=== PATIENT | female | born 2000 | race Caucasian/White ===

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

== ENCOUNTER 2021-01-27 21:33 | Emergency (ER) | payer OTHER ==
[2021-01-27 22:58] VITALS: BP 118/73; PULSE 71; RESP 18; TEMP 98.5
[2021-01-27 23:39] LABS: Appearance,Urine Cloudy (Clear); Bacteria,Urine Rare /hpf; Bilirubin,Urine Negative (Negative); Blood,Urine Negative (Negative); Color,Urine Yellow; Glucose,Urine (UA) Negative (Negative); Hyaline Casts,Urine 3 /lpf (0-2); Ketones,Urine 1+ (Negative); Leukocyte Esterase,Urine Negative (Negative); Mucus,Urine Many /hpf; Nitrite,Urine Negative (Negative); Protein,Urine Trace (Negative); RBC,Urine 13 /hpf (0-5); Specific Gravity,Urine 1.023 (1.001-1.035); Squamous Epithelial Cell,Urine 2 /hpf (0-4); WBC,Urine 2 /hpf (0-5)
--- NOTE | 2021-01-28 00:55 | ED ---
Abdominal Pain HPI - General Chief Complaint: Abdominal Pain Stated Complaint: Abdominal pain Time Seen by Provider: 01/28/21 00:52 Source: patient Mode of arrival: ambulatory Limitations: no limitations - Related Data Home Medications Medication Instructions Recorded Confirmed Cephalexin [Keflex] 500 mg PO Q12H 11/29/20 11/29/20 Tylenol (Unknown Strength) 2 tab PO ONCE PRN 11/29/20 11/29/20 Previous Rx's Medication Instructions Recorded Sulfamethox-Tmp 800-160Mg [Bactrim 1 each PO Q12HR #10 tab 11/29/20 Ds] valACYclovir HCL [Valtrex] 2,000 mg PO Q12HR 1 Days #4 tab 11/29/20 Allergies Allergy/AdvReac Type Severity Reaction Status Date / Time No Known Allergies Allergy Verified 01/27/21 22:57 Review of Systems ROS Statement: Those systems with pertinent positive or pertinent negative responses have been documented in the HPI. ROS Other: All systems not noted in ROS Statement are negative. Past Medical History Past Medical History: No Reported History History of Any Multi-Drug Resistant Organisms: None Reported Past Surgical History: Ear Surgery Past Psychological History: No Psychological Hx Reported Smoking Status: Never smoker Past Alcohol Use History: None Reported Past Drug Use History: None Reported General Exam Limitations: no limitations Course Vital Signs 01/27/21 22:54 Temperature 98.5 F Pulse Rate 71 Respiratory 18 Rate Blood Pressure 118/73 O2 Sat by Pulse 96 Oximetry Medical Decision Making - Lab Data Lab Results 01/27/21 01/27/21 Range/Units 23:02 23:03 Urine Color Yellow Urine Appearance Cloudy H (Clear) Urine pH 6.0 (5.0-8.0) Ur Specific [place] 1.023 (1.001-1.035) Urine Protein Trace H (Negative) Urine Glucose (UA) Negative (Negative) Urine Ketones 1+ H (Negative) Urine Blood Negative (Negative) Urine Nitrite Negative (Negative) Urine Bilirubin Negative (Negative) Urine Urobilinogen 2.0 (<2.0) mg/dL Ur Leukocyte Esterase Negative (Negative) Urine RBC 13 H (0-5) /hpf Urine WBC 2 (0-5) /hpf Ur Squamous Epith Cells 2 (0-4) /hpf Urine Bacteria Rare H (None) /hpf Hyaline Casts 3 H (0-2) /lpf Urine Mucus Many H (None) /hpf Urine HCG, Qual Not Detected (Not Detectd) Disposition Clinical Impression: Abdominal pain Disposition: HOME SELF-CARE Condition: Good Instructions (If sedation given, give patient instructions): Abdominal Pain (ED) Is patient prescribed a controlled substance at d/c from ED?: No Referrals: None,Stated [Primary Care Provider] - 1-2 days
[2021-01-29 13:10] LABS: C. trachomatis,PCR Negative (Neg,Equiv); Chlamydia trachomatis Source Urine; N. gonorrhoeae,PCR Negative (Neg,Equiv); Neisseria Source Urine
== END 2021-01-28 01:19 | disposition home or self-care (01) ==
LOC: EC 21:33
DX: R10.9 Unspecified abdominal pain (principal)
CPT/HCPCS: 81001; 81025; 87086; 87491; 87591; 99284

== ENCOUNTER 2021-04-14 20:42 | Emergency (ER) | payer OTHER ==
[2021-04-14 21:09] VITALS: BP 116/63; PULSE 79; RESP 18; TEMP 97.8
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
[2021-04-14] MEDS ORDERED: AMOXICILLIN 500 MG CAP PO STA (21:37)
[2021-04-14] MEDS ORDERED: ACET/COD 300 MG/30 MG STARTER PACK 6 TAB BTL PO STA (21:37)
== END 2021-04-14 22:14 | disposition home or self-care (01) ==
LOC: EC 20:42
DX: H72.92 Unspecified perforation of tympanic membrane, left ear (principal)
CPT/HCPCS: 99282

== ENCOUNTER 2021-11-22 19:06 | Emergency (ER) | payer OTHER ==
[2021-11-22 19:20] VITALS: BP 102/51; RESP 20; TEMP 97.7
[2021-11-22 19:21] VITALS: PULSE 96
--- NOTE | 2021-11-22 19:58 | ED ---
General Adult HPI - General Chief complaint: Upper Respiratory Infection Stated complaint: covid test Time Seen by Provider: 11/22/21 19:23 Source: patient Mode of arrival: ambulatory Limitations: no limitations - History of Present Illness Initial comments: This 20-year-old female presents emergency Department to get tested for COVID- 19. Patient states her sister, who lives in the home with them test positive for COVID-19 yesterday. Patient states for the last day she has had a sore throat, body aches, cough without mucus production, and a dull headache that seemed to go away earlier today. Patient states she has been taking Tylenol which has improved her symptoms. Patient denies any chest pain, shortness breath, abdominal pain, nausea, vomiting, change in vision, fever, dizziness, change in appetite, change in bowel or bladder. - Related Data Home Medications Medication Instructions Recorded Confirmed Cephalexin [Keflex] 500 mg PO Q12H 11/29/20 11/29/20 Tylenol (Unknown Strength) 2 tab PO ONCE PRN 11/29/20 11/29/20 Previous Rx's Medication Instructions Recorded Sulfamethox-Tmp 800-160Mg [Bactrim 1 each PO Q12HR #10 tab 11/29/20 Ds] valACYclovir HCL [Valtrex] 2,000 mg PO Q12HR 1 Days #4 tab 11/29/20 Amoxicillin 500 mg PO Q8H 7 Days #21 capsule 04/14/21 Ofloxacin 0.3% Otic Soln [Floxin 10 drops LEFT EAR DAILY 7 Days #10 04/14/21 0.3% Otic Soln] ml Allergies Allergy/AdvReac Type Severity Reaction Status Date / Time No Known Allergies Allergy Verified 11/22/21 19:18 Review of Systems ROS Statement: Those systems with pertinent positive or pertinent negative responses have been documented in the HPI. ROS Other: All systems not noted in ROS Statement are negative. Past Medical History Past Medical History: No Reported History History of Any Multi-Drug Resistant Organisms: None Reported Past Surgical History: Ear Surgery Past Psychological History: No Psychological Hx Reported Smoking Status: Never smoker Past Alcohol Use History: Occasional Past Drug Use History: Marijuana General Exam Limitations: no limitations General appearance: alert, in no apparent distress Head exam: Present: atraumatic, normocephalic Eye exam: Present: normal appearance, EOMI ENT exam: Present: mucous membranes moist Respiratory exam: Present: normal lung sounds bilaterally. Absent: respiratory distress, wheezes, rales, rhonchi, stridor Cardiovascular Exam: Present: regular rate, normal rhythm, normal heart sounds. Absent: systolic murmur, diastolic murmur, rubs, gallop, clicks GI/Abdominal exam: Present: soft, normal bowel sounds. Absent: distended, tenderness, guarding, rebound, rigid Neurological exam: Present: alert, oriented X3, CN II-XII intact Psychiatric exam: Present: normal affect, normal mood Skin exam: Present: warm, dry, intact, normal color. Absent: rash Course Vital Signs 11/22/21 19:18 Temperature 97.7 F Pulse Rate 96 Respiratory 20 Rate Blood Pressure 102/51 O2 Sat by Pulse 100 Oximetry Medical Decision Making - Medical Decision Making This 20-year-old female presents to the emergency department to get tested for covid-19. Patient is Covid 19 positive. Patient advised to take [id number] Motrin or Tylenol for symptom relief. Informed patient to take almk-zph-wjmuiin zinc, vitamin C, vitamin D. Advised patient to get pulse oximeter from [facility] and to return to the emergency department if oxygen drops belo w 90%. Patient to follow-up with primary care provider next 24-48 hours. Strict return precautions were discussed. Patient verbally agreed to plan. Patient sent home in stable condition. - Lab Data Lab Results 11/22/21 Range/Units 19:41 Coronavirus (PCR) Detected A (Not Detectd) Disposition Clinical Impression: COVID-19 Disposition: HOME SELF-CARE Condition: Stable Instructions (If sedation given, give patient instructions): Coronavirus Disease 2019 (COVID-19) Additional Instructions: Please return to the emergency department with any concerning, new, or worsening symptoms. Follow-up with primary care provider next 24-48 hours. Can take Tylenol or Motrin as directed for symptom relief. Take ftrm-rlm-uiezyma zinc, vitamin C, vitamin D. Advised to get pulse oximeter from [facility] and to return to emergency department if oxygen drops below 90%. Is patient prescribed a controlled substance at d/c from ED?: No Referrals: None,Stated [Primary Care Provider] - 1-2 days Time of Disposition: 20:24
== END 2021-11-22 20:44 | disposition home or self-care (01) ==
LOC: EC 19:06
DX: U07.1 COVID-19 (principal); F12.90 Cannabis use, unspecified, uncomplicated; Z72.89 Other problems related to lifestyle
CPT/HCPCS: 87635; 99283

== ENCOUNTER 2021-12-03 19:16 | Emergency (ER) | payer OTHER ==
[2021-12-03 20:28] VITALS: TEMP 98.4
[2021-12-03] MEDS ORDERED: ACETAMINOPHEN TAB 500 MG TAB PO STA (22:56)
--- NOTE | 2021-12-03 22:59 | ED ---
General Adult HPI - General Chief complaint: Vaginal Bleeding Stated complaint: , Heavy vaginal bleeding Time Seen by Provider: 12/03/21 22:25 Source: patient Mode of arrival: ambulatory Limitations: no limitations - History of Present Illness Initial comments: 20-year-old female currently with an LMP of 10/21/21 presents to the emergency room for vaginal bleeding. Patient states for 2 days she has had vaginal bleeding. States she has passed some clots. States it does seem to be slowing down. Patient is also having right flank pain. Patient denies dysuria. Denies fevers.Patient has no other complaints at this time including shortness of breath, chest pain, abdominal pain, nausea or vomiting, headache, or visual changes. - Related Data Home Medications Medication Instructions Recorded Confirmed No Known Home Medications 12/03/21 12/03/21 Allergies Allergy/AdvReac Type Severity Reaction Status Date / Time No Known Allergies Allergy Verified 12/03/21 23:01 Review of Systems ROS Statement: Those systems with pertinent positive or pertinent negative responses have been documented in the HPI. ROS Other: All systems not noted in ROS Statement are negative. Past Medical History Past Medical History: No Reported History History of Any Multi-Drug Resistant Organisms: None Reported Past Surgical History: Ear Surgery Past Psychological History: No Psychological Hx Reported Smoking Status: Never smoker Past Alcohol Use History: Occasional Past Drug Use History: Marijuana General Exam Limitations: no limitations General appearance: alert, in no apparent distress Head exam: Present: atraumatic Eye exam: Present: normal appearance, PERRL, EOMI. Absent: scleral icterus, conjunctival injection ENT exam: Present: normal exam, mucous membranes moist Neck exam: Present: normal inspection, full ROM. Absent: tenderness Respiratory exam: Present: normal lung sounds bilaterally. Absent: respiratory distress, wheezes Cardiovascular Exam: Present: regular rate, normal rhythm, normal heart sounds GI/Abdominal exam: Present: soft, normal bowel sounds. Absent: distended, tenderness Back exam: Present: CVA tenderness (R). Absent: CVA tenderness (L) Course Vital Signs 12/03/21 20:26 Temperature 98.4 F Pulse Rate 77 Respiratory 20 Rate Blood Pressure 106/63 O2 Sat by Pulse 99 Oximetry Medical Decision Making - Medical Decision Making Vitals are stable. Patient is well-appearing. No abdominal tenderness on exam. CBC reveals a hemoglobin of 11.4. CMP is unremarkable. HCG is negative. Uri nalysis does show blood however this is likely related to vaginal bleeding. Pelvic ultrasound is unremarkable. Patient was also having some right flank pain. This showed no evidence of hydronephrosis. At this time patient is stable for outpatient follow-up. She should return here for any worsening symptoms. - Lab Data Result diagrams: 12/04/21 01:24 12/04/21 01:24 Lab Results 12/03/21 12/03/21 12/04/21 Range/Units 23:19 23:19 01:24 WBC 6.1 (4.0-11.0) k/uL RBC 4.04 (3.80-5.40) m/uL Hgb 11.4 (11.4-16.0) gm/dL Hct 35.2 (34.0-46.0) % MCV 87.2 (80.0-100.0) fL MCH 28.2 (25.0-35.0) pg MCHC 32.3 (31.0-37.0) g/dL RDW 12.8 (11.5-15.5) % Plt Count 226 (150-450) k/uL MPV 9.6 Neutrophils % 63 % Lymphocytes % 28 % Monocytes % 5 % Eosinophils % 3 % Basophils % 0 % Neutrophils # 3.8 (1.3-7.7) k/uL Lymphocytes # 1.7 (1.0-4.8) k/uL Monocytes # 0.3 (0-1.0) k/uL Eosinophils # 0.2 (0-0.7) k/uL Basophils # 0.0 (0-0.2) k/uL Sodium (137-145) mmol/L Potassium (3.5-5.1) mmol/L Chloride (98-107) mmol/L Carbon Dioxide (22-30) mmol/L Anion Gap mmol/L BUN (7-17) mg/dL Creatinine (0.52-1.04) mg/dL Est GFR (CKD-EPI)AfAm (>60 ml/min/1.73 sqM) Est GFR (CKD-EPI)NonAf (>60 ml/min/1.73 sqM) Glucose (74-99) mg/dL Calcium (8.4-10.2) mg/dL Total Bilirubin (0.2-1.3) mg/dL AST (14-36) U/L ALT (4-34) U/L Alkaline Phosphatase (38-126) U/L Total Protein (6.3-8.2) g/dL Albumin (3.5-5.0) g/dL HCG, Quant mIU/mL Urine Color Red Urine Appearance Cloudy H (Clear) Urine pH 7.5 (5.0-8.0) Ur Specific [place] 1.027 (1.001-1.035) Urine Protein 2+ H (Negative) Urine Glucose (UA) Negative (Negative) Urine Ketones Negative (Negative) Urine Blood Large H (Negative) Urine Nitrite Negative (Negative) Urine Bilirubin Negative (Negative) Urine Urobilinogen 2.0 (<2.0) mg/dL Ur Leukocyte Esterase Small H (Negative) Urine RBC >182 H (0-5) /hpf Urine WBC 17 H (0-5) /hpf Ur Squamous Epith Cells 19 H (0-4) /hpf Amorphous Sediment Rare H (None) /hpf Urine Bacteria Rare H (None) /hpf Urine Mucus Many H (None) /hpf Urine HCG, Qual Not Detected (Not Detectd) Blood Type Recheck Bld Type Recheck Status 12/04/21 12/04/21 Range/Units 01:24 01:24 WBC (4.0-11.0) k/uL RBC (3.80-5.40) m/uL Hgb (11.4-16.0) gm/dL Hct (34.0-46.0) % MCV (80.0-100.0) fL MCH (25.0-35.0) pg MCHC (31.0-37.0) g/dL RDW (11.5-15.5) % Plt Count (150-450) k/uL MPV Neutrophils % % Lymphocytes % % Monocytes % % Eosinophils % % Basophils % % Neutrophils # (1.3-7.7) k/uL Lymphocytes # (1.0-4.8) k/uL Monocytes # (0-1.0) k/uL Eosinophils # (0-0.7) k/uL Basophils # (0-0.2) k/uL Sodium 138 (137-145) mmol/L Potassium 4.0 (3.5-5.1) mmol/L Chloride 106 (98-107) mmol/L Carbon Dioxide 23 (22-30) mmol/L Anion Gap 9 mmol/L BUN 13 (7-17) mg/dL Creatinine 0.63 (0.52-1.04) mg/dL Est GFR (CKD-EPI)AfAm >90 (>60 ml/min/1.73 sqM) Est GFR (CKD-EPI)NonAf >90 (>60 ml/min/1.73 sqM) Glucose 102 H (74-99) mg/dL Calcium 9.3 (8.4-10.2) mg/dL Total Bilirubin 0.7 (0.2-1.3) mg/dL AST 21 (14-36) U/L ALT 10 (4-34) U/L Alkaline Phosphatase 88 (38-126) U/L Total Protein 7.5 (6.3-8.2) g/dL Albumin 4.2 (3.5-5.0) g/dL HCG, Quant <2.4 mIU/mL Urine Color Urine Appearance (Clear) Urine pH (5.0-8.0) Ur Specific [place] (1.001-1.035) Urine Protein (Negative) Urine Glucose (UA) (Negative) Urine Ketones (Negative) Urine Blood (Negative) Urine Nitrite (Negative) Urine Bilirubin (Negative) Urine Urobilinogen (<2.0) mg/dL Ur Leukocyte Esterase (Negative) Urine RBC (0-5) /hpf Urine WBC (0-5) /hpf Ur Squamous Epith Cells (0-4) /hpf Amorphous Sediment (None) /hpf Urine Bacteria (None) /hpf Urine Mucus (None) /hpf Urine HCG, Qual (Not Detectd) Blood Type Recheck No Previous Record Bld Type Recheck Status CABO Indicated Disposition Clinical Impression: Vaginal bleeding Disposition: HOME SELF-CARE Condition: Good Instructions (If sedation given, give patient instructions): Dysfunctional Uterine Bleeding (ED) Additional Instructions: Please follow up with your doctor in 1-2 days. Return to the ER for any worsening symptoms. Is patient prescribed a controlled substance at d/c from ED?: No Referrals: Krystin Vasquez MD [REFERRING] - 1-2 days Pan Disla MD [STAFF PHYSICIAN] - 1-2 days Time of Disposition: 02:22
[2021-12-03 23:49] LABS: Amorphous Sediment,Urine Rare /hpf; Appearance,Urine Cloudy (Clear); Bacteria,Urine Rare /hpf; Bilirubin,Urine Negative (Negative); Blood,Urine Large (Negative); Color,Urine Red; Glucose,Urine (UA) Negative (Negative); Ketones,Urine Negative (Negative); Leukocyte Esterase,Urine Small (Negative); Mucus,Urine Many /hpf; Nitrite,Urine Negative (Negative); PH, Urine 7.5 (5.0-8.0); Protein,Urine 2+ (Negative); RBC,Urine >182 /hpf (0-5); Specific Gravity,Urine 1.027 (1.001-1.035); Squamous Epithelial Cell,Urine 19 /hpf (0-4); WBC,Urine 17 /hpf (0-5)
--- NOTE | 2021-12-04 01:18 | US ---
EXAMINATION TYPE: US kidneys/renal and bladder DATE OF EXAM: 12/04/2021 COMPARISON: NONE CLINICAL HISTORY: R flank pain. Right flank pain. EXAM MEASUREMENTS: Right Kidney: 10.2 x 5.3 x 3.7 cm Left Kidney: 11.0 x 5.0 x 4.9 cm Right Kidney: No hydronephrosis or masses seen Left Kidney: Limited. Hyperechoic focus seen: 0.8 x 0.7 x 0.5 cm. Bladder: Unable to evaluate. Not distended. Bilateral Jets seen: No IMPRESSION: Bladder was empty during the exam. No hydronephrosis. Echogenic focus in the left kidney without shad owing of doubtful significance.
--- NOTE | 2021-12-04 01:19 | US ---
EXAMINATION TYPE: Transabdominal DATE OF EXAM: 12/04/2021 12:02 AM COMPARISON: NONE CLINICAL HISTORY: pain. Pain, bleeding. . EXAM PERFORMED: Transvaginal (TV) and Transabdominal (TA) EXAM MEASUREMENTS: GESTATIONAL AGE / DATING Physician Established: Not yet established. Dates by LMP: (6 weeks/1 day) EDC: 07/28/2022 Dates by First Scan: This is first scan. Dates by Current Scan for: No IUP seen at this time. MATERNAL ANATOMY Uterus: 7.5 x 5.1 x 3.7 cm. Anteverted. Appears slightly heterogeneous. Subcentimeter anechoic areas in cervix. Right Ovary: 3.2 x 1.7 x 1.9 cm. Largest anechoic area seen- 1.1 cm. Left Ovary: 3.4 x 2.1 x 1.8 cm. Post CDS / Adnexa: Fluid seen in CDS. Prominent blood vessels seen within bilateral adnexa measuring 0.7 cm. Presence of free fluid: Yes, in CDS. Presence of corpus luteal cyst: Not definitely seen. GESTATION / SURVEY IUP: No IUP seen at this time. Date of LMP: 10/21/2021 Beta HcG (if available): not available at time of exam. Urine HCG not detected. IMPRESSION: Empty uterus. Endometrium measures 6 mm. No adnexal mass seen.
[2021-12-04 01:34] LABS: Basophils % (A) 0 %; Eosinophils # (A) 0.2 k/uL (0-0.7); Eosinophils % (A) 3 %; HCT 35.2 % (34.0-46.0); HGB 11.4 gm/dL (11.4-16.0); Lymphocytes # (A) 1.7 k/uL (1.0-4.8); Lymphocytes % (A) 28 %; MCH 28.2 pg (25.0-35.0); MCHC 32.3 g/dL (31.0-37.0); MCV 87.2 fL (80.0-100.0); Mean Platelet Volume 9.6; Monocytes # (A) 0.3 k/uL (0-1.0); Monocytes % (A) 5 %; Neutrophils # (A) 3.8 k/uL (1.3-7.7); Neutrophils % (A) 63 %; Platelet Count 226 k/uL (150-450); RBC 4.04 m/uL (3.80-5.40); RDW 12.8 % (11.5-15.5); WBC 6.1 k/uL (4.0-11.0)
[2021-12-04 01:56] LABS: ALT 10 U/L (4-34); AST 21 U/L (14-36); African American GFR (CKD) >90 (>60 ml/min/1.73 sqM); Albumin 4.2 g/dL (3.5-5.0); Alkaline Phosphatase 88 U/L (38-126); Anion Gap 9 mmol/L; Blood Urea Nitrogen 13 mg/dL (7-17); Calcium 9.3 mg/dL (8.4-10.2); Carbon Dioxide 23 mmol/L (22-30); Chloride 106 mmol/L (98-107); Glucose 102 mg/dL (74-99); Non-African American GFR(CKD) >90 (>60 ml/min/1.73 sqM); Sodium 138 mmol/L (137-145); Total Bilirubin 0.7 mg/dL (0.2-1.3); Total Protein 7.5 g/dL (6.3-8.2)
[2021-12-04 02:13] LABS: HCG,Quantitative Serum <2.4 mIU/mL
[2021-12-04 05:21] VITALS: BP 104/60; PULSE 89; RESP 18
== END 2021-12-04 04:00 | disposition home or self-care (01) ==
LOC: EC 19:16
DX: N93.9 Abnormal uterine and vaginal bleeding, unspecified (principal); F12.90 Cannabis use, unspecified, uncomplicated
CPT/HCPCS: 36415; 76770; 76801; 76817; 80053; 81001; 81025; 84702; 85025; 86900; 86901; 87086; 99284

== ENCOUNTER 2022-09-07 17:51 | Emergency (ER) | payer OTHER ==
[2022-09-07 18:50] LABS: Basophils % (A) 0 %; Eosinophils # (A) 0.1 k/uL (0-0.7); Eosinophils % (A) 1 %; HCT 41.4 % (34.0-46.0); HGB 13.9 gm/dL (11.4-16.0); Lymphocytes # (A) 1.9 k/uL (1.0-4.8); Lymphocytes % (A) 31 %; MCH 29.2 pg (25.0-35.0); MCHC 33.6 g/dL (31.0-37.0); MCV 86.9 fL (80.0-100.0); Mean Platelet Volume 9.8; Monocytes # (A) 0.3 k/uL (0-1.0); Monocytes % (A) 5 %; Neutrophils # (A) 3.8 k/uL (1.3-7.7); Neutrophils % (A) 61 %; Platelet Count 192 k/uL (150-450); RBC 4.76 m/uL (3.80-5.40); RDW 13.7 % (11.5-15.5); WBC 6.2 k/uL (4.0-11.0)
[2022-09-07 18:58] LABS: ALT 15 U/L (4-34); AST 25 U/L (14-36); African American GFR (CKD) >90 (>60 ml/min/1.73 sqM); Albumin 5.3 g/dL (3.5-5.0); Alkaline Phosphatase 104 U/L (38-126); Anion Gap 13 mmol/L; Blood Urea Nitrogen 10 mg/dL (7-17); Calcium 9.7 mg/dL (8.4-10.2); Carbon Dioxide 21 mmol/L (22-30); Chloride 107 mmol/L (98-107); Glucose 93 mg/dL (74-99); Non-African American GFR(CKD) >90 (>60 ml/min/1.73 sqM); Potassium 3.7 mmol/L (3.5-5.1); Sodium 141 mmol/L (137-145); Total Bilirubin 0.9 mg/dL (0.2-1.3); Total Protein 8.6 g/dL (6.3-8.2)
--- NOTE | 2022-09-07 19:11 | ED ---
Female Urogenital HPI - General Chief complaint: Vaginal Bleeding Stated complaint: Vaginal bleeding-5 weeks preg Time Seen by Provider: 09/07/22 17:59 Source: patient, RN notes reviewed Mode of arrival: ambulatory Limitations: no limitations - History of Present Illness Initial comments: This is a 21-year-old female who presents to the emergency department for vaginal bleeding. She is A0 with her first being 4 years ago. States that the spotting started 2 days ago. She first went to [facility] 2 days ago, she had blood work done but no ultrasound. She was discharged and told to return if symptoms persisted. States that she is now bleeding through a pad every hour. Reports associated abdominal cramping. Denies any nausea or vomiting. She is still trying to become established with an software controls engineer. Denies any fevers, chills, sore throat, cough, dyspnea, chest pain, palpitations, nausea, vomiting, diarrhea, back pain, or headaches. MD Complaint: vaginal bleeding, pelvic pain Onset/Timin -: days(s) Quality: cramping Last Menstrual Period: 08/04/22 - Related Data Previous Rx's Medication Instructions Recorded Cephalexin [Keflex] 500 mg PO Q8HR 5 Days #15 cap 09/07/22 Allergies Allergy/AdvReac Type Severity Reaction Status Date / Time No Known Allergies Allergy Verified 12/03/21 23:01 Review of Systems ROS Statement: Those systems with pertinent positive or pertinent negative responses have been documented in the HPI. ROS Other: All systems not noted in ROS Statement are negative. Past Medical History Past Medical History: No Reported History History of Any Multi-Drug Resistant Organisms: None Reported Past Surgical History: Ear Surgery Past Psychological History: No Psychological Hx Reported Smoking Status: Never smoker Past Alcohol Use History: Occasional Past Drug Use History: Marijuana General Exam Limitations: no limitations General appearance: alert, in no apparent distress Head exam: Present: atraumatic, normocephalic, normal inspection Respiratory exam: Present: normal lung sounds bilaterally. Absent: respiratory distress, wheezes, rales, rhonchi, stridor Cardiovascular Exam: Present: regular rate, normal rhythm, normal heart sounds. Absent: systolic murmur, diastolic murmur, rubs, gallop, clicks GI/Abdominal exam: Present: normal bowel sounds Neurological exam: Present: alert, oriented X3, CN II-XII intact Psychiatric exam: Present: normal affect, normal mood Skin exam: Present: warm, dry, intact, normal color. Absent: rash Course Vital Signs 09/07/22 09/07/22 17:53 20:12 Temperature 98.4 F 98.3 F Pulse Rate 113 H 106 H Respiratory 20 18 Rate Blood Pressure 130/82 106/61 O2 Sat by Pulse 98 99 Oximetry Medical Decision Making - Medical Decision Making This is a 21-year-old female who presents to the emergency department for vaginal bleeding. Lab work was nonactionable. The ultrasound was unable to identify an IUP or other irregular process due to the patient only being 5 weeks and having an hCG of 300. Discussed with the patient that this may be nonthreatening first trimester bleeding or the beginning of a miscarriage. She was given 2 scripts to have her hCG level repeated over the course of 4 days. She will have it repeated on 09/09 and again on 09/11 to trend the hCG numbers. Additionally, there was bacteria in her urine and she'll be treated for asymptomatic bacteriuria. The first dose of Keflex was administered in the emergency department and a five-day course was sent to her pharmacy. She is Rh+ and no RhoGAM is indicated. She is instructed to take a vitamin if she is not doing so already and to only take Tylenol for her pain, avoiding any [id number] anti-inflammatories such as ibuprofen or Tylenol. Reminded her to continue looking for obstetricians and to try to become established with one as soon as possible, especially given that she is having ongoing vaginal bleeding. Return precautions reviewed in depth, the patient is instructed to return to the emergency department with any new, worsening, or concerning symptoms. Patient verbalized understanding. This case was discussed in detail with the attending ED physician. Presentation, findings, and treatment plan discussed in detail as well. - Lab Data Result diagrams: 09/07/22 18:26 09/07/22 18: Lab Results 09/07/22 09/07/22 09/07/22 Range/Units 18:26 18:26 18: WBC 6.2 (4.0-11.0) k/uL RBC 4.76 (3.80-5.40) m/uL Hgb 13.9 (11.4-16.0) gm/dL Hct 41.4 (34.0-46.0) % MCV 86.9 (80.0-100.0) fL MCH 29.2 (25.0-35.0) pg MCHC 33.6 (31.0-37.0) g/dL RDW 13.7 (11.5-15.5) % Plt Count 192 (150-450) k/uL MPV 9.8 Neutrophils % 61 % Lymphocytes % 31 % Monocytes % 5 % Eosinophils % 1 % Basophils % 0 % Neutrophils # 3.8 (1.3-7.7) k/uL Lymphocytes # 1.9 (1.0-4.8) k/uL Monocytes # 0.3 (0-1.0) k/uL Eosinophils # 0.1 (0-0.7) k/uL Basophils # 0.0 (0-0.2) k/uL Sodium 141 (137-145) mmol/L Potassium 3.7 (3.5-5.1) mmol/L Chloride 107 (98-107) mmol/L Carbon Dioxide 21 L (22-30) mmol/L Anion Gap 13 mmol/L BUN 10 (7-17) mg/dL Creatinine 0.64 (0.52-1.04) mg/dL Est GFR (CKD-EPI)AfAm >90 (>60 ml/min/1.73 sqM) Est GFR (CKD-EPI)NonAf >90 (>60 ml/min/1.73 sqM) Glucose 93 (74-99) mg/dL Calcium 9.7 (8.4-10.2) mg/dL Total Bilirubin 0.9 (0.2-1.3) mg/dL AST 25 (14-36) U/L ALT 15 (4-34) U/L Alkaline Phosphatase 104 (38-126) U/L Total Protein 8.6 H (6.3-8.2) g/dL Albumin 5.3 H (3.5-5.0) g/dL HCG, Quant 300.7 mIU/mL Urine Color Urine Appearance (Clear) Urine pH (5.0-8.0) Ur Specific [place] (1.001-1.035) Urine Protein (Negative) Urine Glucose (UA) (Negative) Urine Ketones (Negative) Urine Blood (Negative) Urine Nitrite (Negative) Urine Bilirubin (Negative) Urine Urobilinogen (<2.0) mg/dL Ur Leukocyte Esterase (Negative) Urine RBC (0-5) /hpf Urine WBC (0-5) /hpf Ur Squamous Epith Cells (0-4) /hpf Urine Bacteria (None) /hpf Urine Mucus (None) /hpf Blood Type O Positive Blood Type Recheck O Pos Bld Type Recheck Status No 09/07/22 Range/Units 19:18 WBC (4.0-11.0) k/uL RBC (3.80-5.40) m/uL Hgb (11.4-16.0) gm/dL Hct (34.0-46.0) % MCV (80.0-100.0) fL MCH (25.0-35.0) pg MCHC (31.0-37.0) g/dL RDW (11.5-15.5) % Plt Count (150-450) k/uL MPV Neutrophils % % Lymphocytes % % Monocytes % % Eosinophils % % Basophils % % Neutrophils # (1.3-7.7) k/uL Lymphocytes # (1.0-4.8) k/uL Monocytes # (0-1.0) k/uL Eosinophils # (0-0.7) k/uL Basophils # (0-0.2) k/uL Sodium (137-145) mmol/L Potassium (3.5-5.1) mmol/L Chloride (98-107) mmol/L Carbon Dioxide (22-30) mmol/L Anion Gap mmol/L BUN (7-17) mg/dL Creatinine (0.52-1.04) mg/dL Est GFR (CKD-EPI)AfAm (>60 ml/min/1.73 sqM) Est GFR (CKD-EPI)NonAf (>60 ml/min/1.73 sqM) Glucose (74-99) mg/dL Calcium (8.4-10.2) mg/dL Total Bilirubin (0.2-1.3) mg/dL AST (14-36) U/L ALT (4-34) U/L Alkaline Phosphatase (38-126) U/L Total Protein (6.3-8.2) g/dL Albumin (3.5-5.0) g/dL HCG, Quant mIU/mL Urine Color Yellow Urine Appearance Cloudy H (Clear) Urine pH 7.0 (5.0-8.0) Ur Specific [place] 1.023 (1.001-1.035) Urine Protein 1+ H (Negative) Urine Glucose (UA) Negative (Negative) Urine Ketones Trace H (Negative) Urine Blood Large H (Negative) Urine Nitrite Negative (Negative) Urine Bilirubin Negative (Negative) Urine Urobilinogen <2.0 (<2.0) mg/dL Ur Leukocyte Esterase Small H (Negative) Urine RBC 1 (0-5) /hpf Urine WBC 16 H (0-5) /hpf Ur Squamous Epith Cells 11 H (0-4) /hpf Urine Bacteria Rare H (None) /hpf Urine Mucus Moderate H (None) /hpf Blood Type Blood Type Recheck Bld Type Recheck Status - Radiology Data Radiology results: report reviewed, image reviewed Disposition Clinical Impression: Vaginal bleeding in Disposition: HOME SELF-CARE Instructions (If sedation given, give patient instructions): (ED) Additional Instructions: Return to the emergency department with any new, worsening, or concerning symptoms. Take the Keflex as prescribed for 5 days. Take the prescriptions to the lab to have your hCG levels repeated in 2 days, on 09/09 and in 4 days on 09/11. Make sure you're taking a vitamin if you're not already doing so. Be sure to only take Tylenol for any pain and avoid [id number] anti- inflammatories such as ibuprofen. Keep trying to contact software controls engineer offices to become established with one of them. Follow up with your primary care provider in 1-2 days. Prescriptions: Cephalexin [Keflex] 500 mg PO Q8HR 5 Days #15 cap Is patient prescribed a controlled substance at d/c from ED?: No Referrals: None,Stated [Primary Care Provider] - 1-2 days
[2022-09-07 19:15] LABS: HCG,Quantitative Serum 300.7 mIU/mL
--- NOTE | 2022-09-07 19:24 | US ---
EXAMINATION TYPE: Transabdominal DATE OF EXAM: 09/07/2022 7:07 PM COMPARISON: NONE CLINICAL HISTORY: Vaginal bleeding in . EXAM PERFORMED: Transabdominal (TA) EXAM MEASUREMENTS: GESTATIONAL AGE / DATING Physician Established: Not yet established Dates by LMP: (4 weeks/ 6 days) EDC: 05-11-22 Dates by First Scan: No previous this is first scan Dates by Current Scan for: Unable to date by today's study MATERNAL ANATOMY Uterus: 8.6 x 5.4 x 2.8cm Endometrium: 1.1cm Right Ovary: 1.6 x 1.5 x 3.6cm Left Ovary: 2.3 x 1.6 x 1.9cm Post CDS / Adnexa: Adnexa are within normal limits. No suspicious solid or cystic lesion. GESTATION / SURVEY No IUP seen at this time. Patient is 4 weeks 6 days by LMP. Date of LMP: 08-04-22 Beta HcG (if available): Not available at this time IMPRESSION: No evidence for intrauterine or extrauterine at this time. Finding may represent a normal e radha . However spontaneous miscarriage or ectopic cannot be excluded. Recommend se rial beta hCG studies and follow-up ultrasound in 3-5 weeks.
[2022-09-07 19:52] LABS: Appearance,Urine Cloudy (Clear); Bacteria,Urine Rare /hpf; Bilirubin,Urine Negative (Negative); Blood,Urine Large (Negative); Color,Urine Yellow; Glucose,Urine (UA) Negative (Negative); Ketones,Urine Trace (Negative); Leukocyte Esterase,Urine Small (Negative); Mucus,Urine Moderate /hpf; Nitrite,Urine Negative (Negative); Protein,Urine 1+ (Negative); RBC,Urine 1 /hpf (0-5); Specific Gravity,Urine 1.023 (1.001-1.035); Squamous Epithelial Cell,Urine 11 /hpf (0-4); Urobilinogen,Urine <2.0 mg/dL (<2.0); WBC,Urine 16 /hpf (0-5)
[2022-09-07] MEDS ORDERED: CEPHALEXIN 500 MG CAP PO STA (19:59)
[2022-09-07 20:15] VITALS: BP 106/61; PULSE 106; RESP 18; TEMP 98.3
== END 2022-09-07 20:15 | disposition home or self-care (01) ==
LOC: EC 17:51
DX: O46.91 Antepartum hemorrhage, unspecified, first trimester (principal); F12.90 Cannabis use, unspecified, uncomplicated; Z3A.01 Less than 8 weeks gestation of pregnancy
CPT/HCPCS: 36415; 76801; 80053; 81001; 84702; 85025; 86900; 86901; 87086; 99284

== ENCOUNTER 2022-10-04 19:56 | Emergency (ER) | payer OTHER ==
[2022-10-04] MEDS ORDERED: SODIUM CHLORIDE 0.9% 1,000 ML IV ONE (22:28)
[2022-10-04] MEDS ORDERED: ACETAMINOPHEN TAB 325 MG TAB PO STA (22:28)
--- NOTE | 2022-10-04 22:32 | ED ---
General Adult HPI - General Chief complaint: Vaginal Bleeding Stated complaint: 7 Weeks preg,Bleeding and cramping Time Seen by Provider: 10/04/22 22:22 Source: patient, RN notes reviewed, old records reviewed Mode of arrival: ambulatory Limitations: no limitations - History of Present Illness Initial comments: This is a well-appearing 21-year-old female that presents to the emergency room with vaginal bleeding today. Patient states that she is approximately 7 weeks . She was seen in the emergency room for this and had an ultrasound done in September and was told they could not confirm an intrauterine . She states that she did go to [facility] on last week and had an ultrasound. They did identify a gestational sac. She has had intermittent bleeding throughout the however today she's had increased bleeding and pelvic cramping. She is a . Denies any other medical history. Is taking vitamins. No smoking or vaping, denies drug or alcohol use. -: days(s) (1) Location: pelvis Radiation: non-radiation Severity scale (1-10): 9 Consistency: intermittent Associated Symptoms: other (Vaginal bleeding) - Related Data Previous Rx's Medication Instructions Recorded Cephalexin [Keflex] 500 mg PO Q8HR 5 Days #15 cap 09/07/22 Allergies Allergy/AdvReac Type Severity Reaction Status Date / Time No Known Allergies Allergy Verified 10/04/22 20:37 Review of Systems ROS Statement: Those systems with pertinent positive or pertinent negative responses have been documented in the HPI. ROS Other: All systems not noted in ROS Statement are negative. Past Medical History Past Medical History: No Reported History History of Any Multi-Drug Resistant Organisms: None Reported Past Surgical History: Ear Surgery Past Psychological History: No Psychological Hx Reported Smoking Status: Never smoker Past Alcohol Use History: Occasional Past Drug Use History: Marijuana General Exam Limitations: no limitations General appearance: alert, in no apparent distress Head exam: Present: atraumatic, normocephalic Eye exam: Absent: scleral icterus, conjunctival injection, periorbital swelling, periorbital tenderness Neck exam: Present: normal inspection, full ROM. Absent: meningismus Respiratory exam: Present: normal lung sounds bilaterally. Absent: respiratory distress, wheezes, rales, rhonchi, stridor, chest wall tenderness, accessory muscle use Cardiovascular Exam: Present: regular rate GI/Abdominal exam: Present: soft. Absent: distended, tenderness, guarding, rebound, rigid Extremities exam: Present: full ROM, normal capillary refill. Absent: pedal edema Back exam: Present: normal inspection, full ROM. Absent: tenderness, CVA tenderness (R), CVA tenderness (L), rash noted Neurological exam: Present: alert, oriented X3 Psychiatric exam: Present: normal affect, normal mood Skin exam: Present: warm, dry, normal color. Absent: cyanosis, diaphoretic, petechiae, pallor Course Vital Signs 10/04/22 10/04/22 20:35 23:42 Temperature 98.1 F 98.0 F Pulse Rate 83 71 Respiratory 16 18 Rate Blood Pressure 119/74 119/71 O2 Sat by Pulse 98 97 Oximetry Medical Decision Making - Medical Decision Making Records were obtained from [facility] from patient's visits in September. Her hCG on 09/20/22 was 4840, and 09/30/22 was 8281. Bedside ultrasound was performed at their facility showing a gestational sac that was present. Ultrasound performed today interpreted by me shows no evidence of intrauterine . Radiologist interpretation empty uterus with no adnexal mass or free fluid. Today her BHCG is 7092. Hemoglobin and hematocrit are stable. Patient was given IV fluids. Vital signs are stable. This appears to be a complete . She states that cramping and bleeding has subsided. Patient was directed to follow-up with her SENIOR SOFTWARE ENGINEERING MANAGER on Thursday morning. Return to the emergency room with any new or concerning symptoms. - Lab Data Result diagrams: 10/04/22 22:24 10/04/22 22:24 Lab Results 10/04/22 10/04/22 Range/Units 22:24 22:24 WBC 9.3 (4.0-11.0) k/uL RBC 4.46 (3.80-5.40) m/uL Hgb 13.4 (11.4-16.0) gm/dL Hct 39.7 (34.0-46.0) % MCV 89.2 (80.0-100.0) fL MCH 30.1 (25.0-35.0) pg MCHC 33.8 (31.0-37.0) g/dL RDW 13.5 (11.5-15.5) % Plt Count 189 (150-450) k/uL MPV 9.5 Neutrophils % 83 % Lymphocytes % 12 % Monocytes % 3 % Eosinophils % 0 % Basophils % 0 % Neutrophils # 7.7 (1.3-7.7) k/uL Lymphocytes # 1.1 (1.0-4.8) k/uL Monocytes # 0.3 (0-1.0) k/uL Eosinophils # 0.0 (0-0.7) k/uL Basophils # 0.0 (0-0.2) k/uL Sodium 138 (137-145) mmol/L Potassium 3.9 (3.5-5.1) mmol/L Chloride 108 H (98-107) mmol/L Carbon Dioxide 20 L (22-30) mmol/L Anion Gap 10 mmol/L BUN 13 (7-17) mg/dL Creatinine 0.62 (0.52-1.04) mg/dL Est GFR (CKD-EPI)AfAm >90 (>60 ml/min/1.73 sqM) Est GFR (CKD-EPI)NonAf >90 (>60 ml/min/1.73 sqM) Glucose 119 H (74-99) mg/dL Calcium 9.4 (8.4-10.2) mg/dL HCG, Quant 7092.6 mIU/mL Disposition Clinical Impression: Complete Disposition: HOME SELF-CARE Condition: Good Instructions (If sedation given, give patient instructions): Miscarriage (ED) Additional Instructions: Increase your fluid intake. Tylenol and/or Motrin as needed for any discomfort. You can also use heat. Follow-up with SENIOR SOFTWARE ENGINEERING MANAGER next week. Return to the emergency room with pain or concerning symptoms including increased pain, bleeding or fevers. Have your labs repeated in 48 hours. Is patient prescribed a controlled substance at d/c from ED?: No Referrals: None,Stated [Primary Care Provider] - 1-2 days Kathie Dahl MD [STAFF PHYSICIAN] - 1-2 days Time of Disposition: 00:02
[2022-10-04 22:36] LABS: Basophils % (A) 0 %; Eosinophils % (A) 0 %; HCT 39.7 % (34.0-46.0); HGB 13.4 gm/dL (11.4-16.0); Lymphocytes # (A) 1.1 k/uL (1.0-4.8); Lymphocytes % (A) 12 %; MCH 30.1 pg (25.0-35.0); MCHC 33.8 g/dL (31.0-37.0); MCV 89.2 fL (80.0-100.0); Mean Platelet Volume 9.5; Monocytes # (A) 0.3 k/uL (0-1.0); Monocytes % (A) 3 %; Neutrophils # (A) 7.7 k/uL (1.3-7.7); Neutrophils % (A) 83 %; Platelet Count 189 k/uL (150-450); RBC 4.46 m/uL (3.80-5.40); RDW 13.5 % (11.5-15.5); WBC 9.3 k/uL (4.0-11.0)
[2022-10-04 22:46] LABS: African American GFR (CKD) >90 (>60 ml/min/1.73 sqM); Anion Gap 10 mmol/L; Blood Urea Nitrogen 13 mg/dL (7-17); Calcium 9.4 mg/dL (8.4-10.2); Carbon Dioxide 20 mmol/L (22-30); Chloride 108 mmol/L (98-107); Glucose 119 mg/dL (74-99); Non-African American GFR(CKD) >90 (>60 ml/min/1.73 sqM); Potassium 3.9 mmol/L (3.5-5.1); Sodium 138 mmol/L (137-145)
[2022-10-04 23:02] LABS: HCG,Quantitative Serum 7092.6 mIU/mL
--- NOTE | 2022-10-04 23:42 | US ---
EXAMINATION TYPE: Transabdominal DATE OF EXAM: 10/04/2022 11:16 PM COMPARISON: NONE CLINICAL HISTORY: vag bleeding. Bleeding EXAM PERFORMED: Transabdominal (TA) EXAM MEASUREMENTS: GESTATIONAL AGE / DATING Physician Established: Not yet established Dates by LMP: (8 weeks/5 days) EDC: 05/11/2023 Dates by First Scan: (4 weeks/2 days) EDC: 05/11/2023 Dates by Current Scan for: No IUP seen at this time MATERNAL ANATOMY Uterus: 8.70 x 5.6 x 5.9 cm Right Ovary: 3.0 x 2.0 x 2.3 cm Left Ovary: 2.9 x 2.0 x 2.2 cm Post CDS / Adnexa: wnl Presence of free fluid: no Presence of corpus luteal cyst: no Presence of subchorionic bleed: no GESTATION / SURVEY IUP: No IUP seen at this time Beta HcG (if available): 7092.6 IMPRESSION: The uterus is empty. No adnexal mass or free fluid.
[2022-10-04 23:44] VITALS: BP 119/71; PULSE 71; RESP 18; TEMP 98
== END 2022-10-05 00:12 | disposition home or self-care (01) ==
LOC: EC 19:56
DX: O03.9 Complete or unspecified spontaneous abortion without complication (principal); O99.321 Drug use complicating pregnancy, first trimester; F12.90 Cannabis use, unspecified, uncomplicated; Z3A.01 Less than 8 weeks gestation of pregnancy
CPT/HCPCS: 36415; 76801; 80048; 84702; 85025; 96360; 99284

== ENCOUNTER 2023-01-11 20:35 | Emergency (ER) | payer OTHER ==
[2023-01-11 20:45] VITALS: RESP 16; TEMP 98.7
--- NOTE | 2023-01-11 21:52 | ED ---
Skin/Abscess/FB HPI - General Chief complaint: Skin/Abscess/Foreign Body Stated complaint: Rash Time Seen by Provider: 01/11/23 21:28 Source: patient, RN notes reviewed Mode of arrival: ambulatory Limitations: no limitations - History of Present Illness Initial comments: Patient is a 22-year-old female presenting to the emergency room with complaints of a disseminated rash that has been ongoing for approximately 2 months; she reports that symptoms began shortly after her most recent miscarriage. She reports that she was evaluated by another emergency room department who advised her to use hydrocortisone cream along with Benadryl for her symptoms. She has not been evaluated by dermatology. She reports no nodes in the household has the rash. She does state that the rash is itchy. She denies any new medications or personal hygiene products. She denies any new soaps or detergents. She states that antihistamines and topical hydrocortisone does help some but does not completely relieve her symptoms. She denies any difficulty in breathing, chest pain, abdominal pain, nausea, vomiting, fevers or chills. She does report that she took a urine test within the last 48 hours due to missed menstrual cycle and it did test positive. She has no other significant past medical history. - Related Data Previous Rx's Medication Instructions Recorded Cephalexin [Keflex] 500 mg PO Q8HR 5 Days #15 cap 09/07/22 Triamcinolone 0.1% Cream [Kenalog 1 applicatio TOPICAL BID #60 gm 01/11/23 0.1% Cream] hydrOXYzine HCL 25 mg PO Q8HR PRN 7 Days #21 tab 01/11/23 Allergies Allergy/AdvReac Type Severity Reaction Status Date / Time No Known Allergies Allergy Verified 01/11/23 20:45 Review of Systems ROS Statement: Those systems with pertinent positive or pertinent negative responses have been documented in the HPI. ROS Other: All systems not noted in ROS Statement are negative. Past Medical History Past Medical History: No Reported History History of Any Multi-Drug Resistant Organisms: None Reported Past Surgical History: Ear Surgery Past Psychological History: No Psychological Hx Reported Smoking Status: Never smoker Past Alcohol Use History: Occasional Past Drug Use History: Marijuana General Exam Limitations: no limitations General appearance: alert, in no apparent distress Head exam: Present: atraumatic, normocephalic, normal inspection Eye exam: Present: normal appearance, PERRL, EOMI. Absent: scleral icterus, conjunctival injection, periorbital swelling, periorbital tenderness ENT exam: Present: normal exam, mucous membranes moist Neck exam: Present: normal inspection, full ROM Respiratory exam: Present: normal lung sounds bilaterally. Absent: respiratory distress, wheezes, rales, rhonchi, stridor Cardiovascular Exam: Present: regular rate, normal rhythm, normal heart sounds. Absent: systolic murmur, diastolic murmur, rubs, gallop, clicks GI/Abdominal exam: Present: soft, normal bowel sounds. Absent: distended, tenderness, guarding, rebound, rigid Extremities exam: Present: full ROM. Absent: pedal edema, joint swelling Back exam: Present: normal inspection Neurological exam: Present: alert, oriented X3, CN II-XII intact Psychiatric exam: Present: normal affect, normal mood Skin exam: Present: rash (Scattered macular papular rash with some dry scaling noted rash to bilateral upper and lower extremities along with trunk and cheeks largest continuous area under her breasts), urticaria Course Vital Signs 01/11/23 01/11/23 20:42 23:21 Temperature 98.7 F Pulse Rate 88 78 Respiratory 16 16 Rate Blood Pressure 127/72 118/72 O2 Sat by Pulse 96 Oximetry Medical Decision Making - Medical Decision Making Was pt. sent in by a medical professional or institution (ADIN Ingram, SCRIP CLERK, urgent care, hospital, or longterm...) When possible be specific @ -No Did you speak to anyone other than the patient for history (EMS, parent, family, police, friend...)? What history was obtained from this source @ -No Did you review nursing and triage notes (agree or disagree)? Why? @ -I reviewed and agree with nursing and triage notes except symptoms have been ongoing for approximately 2 months Benadryl does help some but symptoms quickly returned and rash was on face but is no longer on her face. Were old charts reviewed (outside hosp., previous admission, EMS record, old EKG, old radiological studies, urgent care reports/EKG's, longterm records)? Report findings @ -No old charts were reviewed Differential Diagnosis (chest pain, altered mental status, abdominal pain women, abdominal pain men, vaginal bleeding, weakness, fever, dyspnea, syncope, headache, dizziness, GI bleed, back pain, seizure, CVA, palpatations, mental health, musculoskeletal)? @ -not applicable EKG interpreted by me (3pts min.). @ -None done X-rays interpreted by me (1pt min.). @ -None done CT interpreted by me (1pt min.). @ -None done U/S interpreted by me (1pt. min.). @ -None done What testing was considered but not performed or refused? (CT, X-rays, U/S, labs)? Why? @ -None What meds were considered but not given or refused? Why? @ -None Did you discuss the management of the patient with other professionals (professionals i.e. Dr., PA, SCRIP CLERK, lab, RT, psych nurse, social worker assistant, instrument checker, teacher, dairy quality assurance officer, rifle case repairer)? Give summary @ -No Was smoking cessation discussed for >3mins.? @ -No Was critical care preformed (if so, how long)? @ -No Were there social determinants of health that impacted care today? How? (Ho melessness, low income, unemployed, alcoholism, drug addiction, transportation, low edu. Level, literacy, decrease access to med. care, longterm, rehab)? @ -No Was there de-escalation of care discussed even if they declined (Discuss DNR or withdrawal of care, Hospice)? DNR status @ -No What co-morbidities impacted this encounter? (DM, HTN, Smoking, COPD, CAD, Cancer, CVA, ARF, Chemo, Hep., AIDS, mental health diagnosis, sleep apnea, morbid obesity)? @ -None Was patient admitted / discharged? Hospital course, mention meds given and route, prescriptions, significant lab abnormalities, going to OR and other pertinent info. @ -22-year-old female with long-standing macular papular rash with slight plaque formation on some of the papules overall disseminated though is under breasts however sparing remainder of chest. No indication for diagnostic imaging will obtain CBC and CRP will also repeat urine hCG testing. CBC normal including WBC and acidophil count CRP less than 0.5. Urine hCG detected. Advised patient that given status steroids are not recommended no or are NSAIDs will give topical steroid cream but advised to limit use to small area of primary irritation of under breast. Advised may continue antihistamine usage will give prescription for Atarax to evaluate ecstasy of alternative antihistamine. Advised follow-up with SCULPTURE INSTRUCTOR for newly diagnosed and resumption of vitamin. Questions and concerns answered. Return parameters to the emergency room discussed. Will discharge home in stable condition on topical treatment for dermatitis along with hydroxyzine as needed for itching advising follow-up with primary care provider for possible dermatology referral along with SCULPTURE INSTRUCTOR for new . Undiagnosed new problem with uncertain prognosis? @ -No Drug Therapy requiring intensive monitoring for toxicity (Heparin, Nitro, Insulin, Cardizem)? @ -No Were any procedures done? @ -No Diagnosis/symptom? @ -Dermatitis Acute, or Chronic, or Acute on Chronic? @ -Acute Uncomplicated (without systemic symptoms) or Complicated (systemic symptoms)? @ -Complicated Side effects of treatment? @ -No Exacerbation, Progression, or Severe Exacerbation? @ -No Poses a threat to life or bodily function? How? (Chest pain, USA, [place], pneumonia, PE, COPD, DKA, ARF, appy, cholecystitis, CVA, Diverticulitis, Homicidal, Suicidal, threat to staff... and all critical care pts) @ -No Diagnosis/symptom? @ -Newly diagnosed positive test Acute, or Chronic, or Acute on Chronic? @ -Acute Uncomplicated (without systemic symptoms) or Complicated (systemic symptoms)? @ -Uncomplicated Side effects of treatment? @ -none Exacerbation, Progression, or Severe Exacerbation] @ -no Poses a threat to life or bodily function? @ -no Case discussed with Dr. Medrano - Lab Data Result diagrams: 01/11/23 21:58 Lab Results 01/11/23 01/11/23 01/11/23 Range/Units 21:58 21:58 21:58 WBC 7.5 (3.8-10.6) k/uL RBC 4.46 (3.80-5.40) m/uL Hgb 13.0 (11.4-16.0) gm/dL Hct 39.3 (34.0-46.0) % MCV 88.0 (80.0-100.0) fL MCH 29.1 (25.0-35.0) pg MCHC 33.0 (31.0-37.0) g/dL RDW 12.9 (11.5-15.5) % Plt Count 205 (150-450) k/uL MPV 9.3 Neutrophils % 58 % Lymphocytes % 32 % Monocytes % 6 % Eosinophils % 1 % Basophils % 1 % Neutrophils # 4.4 (1.3-7.7) k/uL Lymphocytes # 2.4 (1.0-4.8) k/uL Monocytes # 0.4 (0-1.0) k/uL Eosinophils # 0.1 (0-0.7) k/uL Basophils # 0.0 (0-0.2) k/uL C-Reactive Protein <0.5 (<1.0) mg/dL Urine HCG, Qual Detected (Not Detectd) Blood Type Blood Type Recheck Bld Type Recheck Status 01/11/23 Range/Units 22:08 WBC (3.8-10.6) k/uL RBC (3.80-5.40) m/uL Hgb (11.4-16.0) gm/dL Hct (34.0-46.0) % MCV (80.0-100.0) fL MCH (25.0-35.0) pg MCHC (31.0-37.0) g/dL RDW (11.5-15.5) % Plt Count (150-450) k/uL MPV Neutrophils % % Lymphocytes % % Monocytes % % Eosinophils % % Basophils % % Neutrophils # (1.3-7.7) k/uL Lymphocytes # (1.0-4.8) k/uL Monocytes # (0-1.0) k/uL Eosinophils # (0-0.7) k/uL Basophils # (0-0.2) k/uL C-Reactive Protein (<1.0) mg/dL Urine HCG, Qual (Not Detectd) Blood Type O Positive Blood Type Recheck O Pos Bld Type Recheck Status No Disposition Clinical Impression: Dermatitis, Urticaria Disposition: HOME SELF-CARE Condition: Stable Additional Instructions: . Please utilize steroid cream to primary rash of upper abdominal wall. Utilize hydroxyzine as needed for itching. This medication may cause drowsiness. Utilize Tylenol as needed for pain. Please resume your vitamin daily as you are. Currently with an estimated due date of 09/14/2023. Please follow- up with your primary care provider for possible referral to [facility]. Please contact and reestablish with your SCULPTURE INSTRUCTOR. Please return to the Emergency Department if symptoms worsen or any other concerns. Prescriptions: hydrOXYzine HCL 25 mg PO Q8HR PRN 7 Days #21 tab PRN Reason: Itching Triamcinolone 0.1% Cream [Kenalog 0.1% Cream] 1 applicatio TOPICAL BID #60 gm Is patient prescribed a controlled substance at d/c from ED?: No Referrals: None,Stated [Primary Care Provider] - 1-2 days Time of Disposition: 23:12
[2023-01-11 22:23] LABS: Basophils % (A) 1 %; Eosinophils # (A) 0.1 k/uL (0-0.7); Eosinophils % (A) 1 %; HCT 39.3 % (34.0-46.0); Lymphocytes # (A) 2.4 k/uL (1.0-4.8); Lymphocytes % (A) 32 %; MCH 29.1 pg (25.0-35.0); Mean Platelet Volume 9.3; Monocytes # (A) 0.4 k/uL (0-1.0); Monocytes % (A) 6 %; Neutrophils # (A) 4.4 k/uL (1.3-7.7); Neutrophils % (A) 58 %; Platelet Count 205 k/uL (150-450); RBC 4.46 m/uL (3.80-5.40); RDW 12.9 % (11.5-15.5); WBC 7.5 k/uL (3.8-10.6)
[2023-01-11 23:22] VITALS: BP 118/72; PULSE 78
== END 2023-01-11 23:23 | disposition home or self-care (01) ==
LOC: EC 20:35
DX: L30.9 Dermatitis, unspecified (principal); L50.9 Urticaria, unspecified; F12.90 Cannabis use, unspecified, uncomplicated
CPT/HCPCS: 36415; 81025; 85025; 86140; 86900; 86901; 99283

== ENCOUNTER 2023-09-08 06:02 | Inpatient (IN) | payer OTHER ==
--- NOTE | 2023-09-07 08:15 | P.HPOB ---
History of Present Illness H&P Date: 09/07/23 Chief Complaint: Requested induction of labor This patient is a pleasant 22-year-old 3 para 1 female estimated date of confinement 09/14/2023 estimated gestational age 39 and one sevenths weeks who presents to labor and delivery for requested induction of labor. Patient's care has been uncomplicated she is now uncomfortable requesting induction. Review of Systems Genitourinary: Reports Menstruation: Reports amenorrhea Past Medical History Past Medical History: No Reported History Additional Past Medical History / Comment(s): Previous term vaginal delivery 7 lbs. 6 oz. History of Any Multi-Drug Resistant Organisms: None Reported Past Surgical History: Ear Surgery Past Anesthesia/Blood Transfusion Reactions: No Reported Reaction Past Psychological History: No Psychological Hx Reported Smoking Status: Former smoker Past Alcohol Use History: None Reported Past Drug Use History: None Reported Medications and Allergies Home Medications Medication Instructions Recorded Confirmed Type Vit No.179/Iron/Folic 1 tablet PO DAILY 07/24/23 07/24/23 History [ Tablet] Allergies Allergy/AdvReac Type Severity Reaction Status Date / Time No Known Allergies Allergy Verified 07/24/23 20:54 Exam - OBG Physical Exam Abdomen: bowel sounds normal, no diffuse tenderness, no bruit present, no guarding noted, no hepatomegaly, no splenomegaly, no mass Vulva: both: normal Vagina: normal moisture, no discharge Cervix: no lesion (Cervix is 2-3 cm 50% effaced), no discharge Uterus: enlarged (Otherwise 37 cm) Results blood work shows she is O positive, rubella immune, RPR nonreactive, hepatitis D&C are negative, toxoplasmosis IgG was positive with a negative IgM consistent with a past infection, Glucola was normal at 122, group B strep was negative, most recent ultrasound at 35 week she'll 5 lbs. 7 oz. which is 54th percentile Assessment and Plan Assessment: This is a pleasant 22-year-old 3 para 1 female 39 and one sevenths weeks gestation admitted to labor and delivery for requested induction of labor. Plan is induction of labor and anticipate vaginal delivery (1) 39 weeks gestation of Status: Acute Code(s): Z3A.39 - 39 WEEKS GESTATION OF SNOMED Code(s): 49816951 (2) Elective induction of labor planned Status: Acute Code(s): HMU4191 - SNOMED Code(s): 607701235
[2023-09-08] MEDS ORDERED: TERBUTALINE 1 MG/ML VIAL SQ PRN (06:29)
[2023-09-08] MEDS ORDERED: METHYLERGONOVINE 0.2 MG/ML 1 ML AMP IM PRN (06:29)
[2023-09-08] MEDS ORDERED: OXYTOCIN 30 UNITS/500 ML NS 30 UNIT in SALINE 1 500ML.BAG IV SCH ×2 (06:29→15:42)
[2023-09-08] MEDS ORDERED: miSOPROStoL 200 MCG TAB PO PRN (06:29)
[2023-09-08] MEDS ORDERED: LIDOCAINE 0.5% (PF) 5 MG/ML (50 ML SDV) SQ PRN (06:29)
[2023-09-08] MEDS ORDERED: TRANEXAMIC 1,000 MG/100ML-NACL 1,000 MG in EMPTY BAG 1 BAG IV PRN (06:29)
[2023-09-08] MEDS ORDERED: OXYTOCIN 10 UNIT/ML 1 ML VIAL IM PRN (06:29)
[2023-09-08] MEDS ORDERED: CARBOPROST TROMETHAMINE 250 MCG/ML 1 ML AMP IM PRN (06:29)
[2023-09-08] MEDS: LACTATED RINGERS 1,000 ML IV SCH ×2 (06:37→13:20)
[2023-09-08 06:51] LABS: Basophils % (A) 0 %; Eosinophils # (A) 0.1 k/uL (0-0.7); Eosinophils % (A) 1 %; HGB 11.3 gm/dL (11.4-16.0); Lymphocytes # (A) 1.5 k/uL (1.0-4.8); Lymphocytes % (A) 23 %; MCH 29.4 pg (25.0-35.0); MCHC 34.1 g/dL (31.0-37.0); MCV 86.2 fL (80.0-100.0); Mean Platelet Volume 10.9; Monocytes # (A) 0.3 k/uL (0-1.0); Monocytes % (A) 5 %; Neutrophils # (A) 4.6 k/uL (1.3-7.7); Neutrophils % (A) 70 %; Platelet Count 138 k/uL (150-450); RBC 3.84 m/uL (3.80-5.40); RDW 13.1 % (11.5-15.5); WBC 6.6 k/uL (3.8-10.6)
--- NOTE | 2023-09-08 15:37 | P.PROBDLV ---
Vaginal Delivery Note - . Vaginal Delivery Note: Normal vaginal delivery viable female Apgars 8 and 9 delivery time is 1519 hrs. Please see dictated H&P for intimate details of this patient's admission. Brief summary this pleasant 22-year-old 3 para 1 female 39 and one sevenths weeks who presents to labor and delivery for requested induction of labor. On admission patient's approximate 3 cm dilated has artificial rupture membranes for clear fluid. Labor is induced with Pitocin per protocol. Patient does not request anything for pain control. Patient quickly progresses gets to complete. She pushed the head to the perineum the posterior perineum is supported. Controlled delivery of 's head over the intact perineum. Mouth and nares are bulb suctioned. Infant is straight occiput anterior presentation. There is a hand presenting anteriorly patient and voluntary pushes and delivers the anterior shoulder and rest this 's body. This is a vigorous viable female infant Apgars are 8 and 9. Delivery time is 1519 hrs. After delivery of the infant the umbilical cord is immediately clamped and cut due to history of jaundice with her first child. The placenta is then spontaneously delivered intact. There are no lacerations and no repairs required. Infant and mother are stable delivery room.
[2023-09-08] MEDS ORDERED: ACETAMINOPHEN TAB 325 MG TAB PO PRN (15:42)
[2023-09-08] MEDS ORDERED: BENZOCAINE/MENTHOL SPRAY 1 GM/SPRAY AEROSOL TOPICAL PRN (15:42)
[2023-09-08] MEDS ORDERED: LANOLIN CREAM 5 GM TUBE TOPICAL PRN (15:42)
[2023-09-08] MEDS ORDERED: ZOLPIDEM 5 MG TAB PO PRN (15:42)
[2023-09-08] MEDS ORDERED: SIMETHICONE 80 MG CHEWABLE PO PRN (15:42)
[2023-09-08] MEDS ORDERED: bisacodyL 10 MG SUPP RECTAL PRN (15:42)
[2023-09-08] MEDS ORDERED: IBUPROFEN 600 MG TAB PO PRN (15:42)
[2023-09-08] MEDS ORDERED: diphenhydrAMINE 50 MG/ML 1 ML VIAL IVP PRN (15:42)
[2023-09-08] MEDS ORDERED: diphenhydrAMINE 25 MG CAP PO PRN (15:42)
[2023-09-08] MEDS ORDERED: HYDROCORTISONE 2.5% RECTAL CREAM 30 GM TUBE RECTAL PRN (15:42)
[2023-09-08] MEDS: SENNOSIDES-DOCUSATE SODIUM 1 EACH TAB PO SCH ×2 (20:15→21:09)
--- NOTE | 2023-09-09 06:27 | P.PNOBGVD ---
Subjective - Subjective Patient reports: Reports appetite normal, Reports voiding normally, Reports pain well controlled, Reports ambulating normally : doing well Objective - Latest Vital Signs Latest vital signs: Vital Signs Temp Pulse Resp BP Pulse Ox 09/09/23 04:00 98.1 F 63 16 101/64 99 09/09/23 00:00 74 16 105/68 96 09/08/23 20:00 72 16 105/64 98 09/08/23 17:41 98.8 F 62 16 103/53 09/08/23 17:13 58 L 16 128/56 09/08/23 16:43 77 16 103/77 09/08/23 16:28 74 16 103/64 09/08/23 16:13 55 L 16 99/58 09/08/23 16:00 74 16 105/58 09/08/23 15:58 74 16 105/58 09/08/23 15:43 78 16 109/59 09/08/23 06:29 97.5 F L 98 16 121/76 Intake and Output 09/08/23 09/08/23 09/09/23 14:59 22:59 06:59 Output Total 1450 Balance -1450 Output: Urine 1200 Estimated Blood Loss 100 Output, Quantitative 150 Blood Loss Other: # Voids 1 1 1 Weight 63.503 kg - Exam Lungs: bilateral: normal Chest: Normal S1, Normal S2 Extremities: Present: normal Abdomen: Present: normal appearance, soft Uterus: Present: normal, firm - Labs Labs: Abnormal Lab Results - Last 24 Hours (Table) 09/08/23 Range/Units 06:24 Hgb 11.3 L (11.4-16.0) gm/dL Hct 33.0 L (34.0-46.0) % Plt Count 138 L (150-450) k/uL Assessment and Plan Assessment: Post day #1. Patient is resting without complaints and wishes to go home. Vital signs are stable she is afebrile. Uterus is firm nontender she is having normal lochia. My impression this is a normal course. Plan is to continue routine care, check CBC, discharge home later today. (1) 39 weeks gestation of Current Visit: No Status: Acute Code(s): Z3A.39 - 39 WEEKS GESTATION OF SNOMED Code(s): 12279682 (2) Elective induction of labor planned Current Visit: No Status: Acute Code(s): AQX6060 - SNOMED Code(s): 681190482
--- NOTE | 2023-09-09 06:31 | P.DS ---
Providers Date of admission: 09/08/23 06:02 Expected date of discharge: 09/09/23 Attending physician: Pan Disla Primary care physician: Stated None - Discharge Diagnosis(es) (1) 39 weeks gestation of Current Visit: No Status: Acute (2) Elective induction of labor planned Current Visit: No Status: Acute Hospital Course: Please see dictated H&P for intimate details of this patient's admission. In brief summary this is a pleasant 22-year-old 3 para 1 female 39 and one sevenths weeks gestation admitted to labor and delivery for requested induction of labor. Patient goes on to have induction of labor and vaginal delivery viable female infant. Please see dictated delivery note. patient does well felt be stable for discharge home follow up with me in 6 weeks. Procedures: Induction of labor and normal vaginal delivery Patient Condition at Discharge: Good Plan - Discharge Summary New Discharge Prescriptions: New Ibuprofen [Motrin] 600 mg PO Q6HR PRN #40 tab PRN Reason: Mild Pain (Scale 1 To 3) Discharge Medication List Ibuprofen [Motrin] 600 mg PO Q6HR PRN #40 tab 09/09/23 [Rx] Follow up Appointment(s)/Referral(s): Pan Disla MD [STAFF PHYSICIAN] - 10/20/23 10:00 am (Please see me for a visit on) Patient Instructions/Handouts: Vaginal Delivery (DC) Activity/Diet/Wound Care/Special Instructions: No intercourse or anything per vagina for 6 weeks. Please call if any fever, chills, excessive vaginal bleeding, and/or abdominal pain Discharge Disposition: HOME SELF-CARE
[2023-09-09 07:22] LABS: Basophils % (A) 0 %; Eosinophils # (A) 0.1 k/uL (0-0.7); Eosinophils % (A) 1 %; HCT 32.6 % (34.0-46.0); HGB 10.8 gm/dL (11.4-16.0); Lymphocytes # (A) 1.6 k/uL (1.0-4.8); Lymphocytes % (A) 15 %; MCH 28.8 pg (25.0-35.0); MCHC 33.3 g/dL (31.0-37.0); MCV 86.5 fL (80.0-100.0); Mean Platelet Volume 10.1; Monocytes # (A) 0.5 k/uL (0-1.0); Monocytes % (A) 4 %; Neutrophils # (A) 8.5 k/uL (1.3-7.7); Neutrophils % (A) 79 %; Platelet Count 138 k/uL (150-450); RBC 3.77 m/uL (3.80-5.40); RDW 13.1 % (11.5-15.5); WBC 10.8 k/uL (3.8-10.6)
[2023-09-09] MEDS: SENNOSIDES-DOCUSATE SODIUM 1 EACH TAB PO SCH (08:35)
[2023-09-09 08:36] VITALS: TEMP 98.3
[2023-09-09 13:38] VITALS: BP 101/64; PULSE 76; RESP 14
== END 2023-09-09 16:00 | disposition home or self-care (01) | DRG 560 ==
LOC: 4FBP 06:02
PROVIDERS: ADMIT Obstetrics & Gynecology; ATTEND Obstetrics & Gynecology
PROC: 10E0XZZ Delivery of Products of Conception, External Approach (ICD-10-PCS; principal; 2023-09-08)
PROC: 3E033VJ Introduction of Other Hormone into Peripheral Vein, Percutaneous Approach (ICD-10-PCS; 2023-09-08)
PROC: 3E033VJ Introduction of Other Hormone into Peripheral Vein, Percutaneous Approach (ICD-10-PCS; 2023-09-08)
PROC: 10907ZC Drainage of Amniotic Fluid, Therapeutic from Products of Conception, Via Natural or Artificial Opening (ICD-10-PCS; 2023-09-08)
DX: O99.12 Other diseases of the blood and blood-forming organs and certain disorders involving the immune mechanism complicating childbirth (principal); Z37.0 Single live birth; D80.3 Selective deficiency of immunoglobulin G [IgG] subclasses; Z87.891 Personal history of nicotine dependence; Z3A.39 39 weeks gestation of pregnancy
CPT/HCPCS: 85025; 86850; 86900; 86901

== ENCOUNTER 2023-11-12 17:20 | Emergency (ER) | payer OTHER ==
[2023-11-12 17:53] VITALS: BP 133/67; PULSE 74; RESP 20; TEMP 97.5
--- NOTE | 2023-11-12 19:41 | ED ---
Skin/Abscess/FB HPI - General Chief complaint: Skin/Abscess/Foreign Body Stated complaint: Rash Source: patient Mode of arrival: ambulatory Limitations: no limitations - History of Present Illness Initial comments: This 22-year-old female presents with a complaint of a rash. This overall is fairly diffuse in nature. It is primarily to her abdomen, back, right hip, arms, and face. She states that she's had it for approximately one month. She states that it is very pruritic in nature. She has tried [id number] moisturizing agents without relief. She's tried Benadryl without relief of itching. She denies any history of eczema. No fevers or chills. No other complaints or modifying factors. - Related Data Previous Rx's Medication Instructions Recorded Ibuprofen [Motrin] 600 mg PO Q6HR PRN #40 tab 09/09/23 Triamcinolone 0.1% Cream [Kenalog 1 applic TOPICAL BID #60 gm 11/12/23 0.1% Cream] hydrOXYzine HCL [Atarax] 25 - 50 mg PO QID PRN #30 tab 11/12/23 predniSONE [Deltasone] 20 mg PO BID #10 tab 11/12/23 Allergies Allergy/AdvReac Type Severity Reaction Status Date / Time No Known Allergies Allergy Verified 09/08/23 06:30 Review of Systems ROS Statement: Those systems with pertinent positive or pertinent negative responses have been documented in the HPI. ROS Other: All systems not noted in ROS Statement are negative. Past Medical History Past Medical History: No Reported History Additional Past Medical History / Comment(s): Previous term vaginal delivery 7 lbs. 6 oz. History of Any Multi-Drug Resistant Organisms: None Reported Past Surgical History: Ear Surgery Past Anesthesia/Blood Transfusion Reactions: No Reported Reaction Past Psychological History: No Psychological Hx Reported Smoking Status: Never smoker Past Alcohol Use History: None Reported Past Drug Use History: None Reported General Exam Limitations: no limitations General appearance: alert, in no apparent distress Extremities exam: Present: normal inspection, full ROM. Absent: tenderness Neurological exam: Present: alert, oriented X3 Psychiatric exam: Present: normal affect, normal mood Skin exam: Present: intact, rash (There is a mildly erythematous fairly diffuse rash more prominent in the posterior aspects of the arms, face, abdomen, right hip, and back.) Course Vital Signs 11/12/23 17:38 Temperature 97.5 F L Pulse Rate 74 Respiratory 20 Rate Blood Pressure 133/67 O2 Sat by Pulse 97 Oximetry Medical Decision Making - Medical Decision Making The patient was seen and examined. It is felt as though her symptoms likely are related to eczema. The possibility of pityriasis is possible as well. She is prescribed prednisone, triamcinolone, and Atarax. Close follow-up with derm atology recommended. Return parameters are discussed. Was pt. sent in by a medical professional or institution (, AD[facility], SHIPBUILDING DRAFTSPERSON, urgent care, hospital, or jail...) When possible be specific @ -No Did you speak to anyone other than the patient for history (EMS, parent, family, police, friend...)? What history was obtained from this source @ -No Did you review nursing and triage notes (agree or disagree)? Why? @ -I reviewed and agree with nursing and triage notes Were old charts reviewed (outside hosp., previous admission, EMS record, old EKG, old radiological studies, urgent care reports/EKG's, jail records)? Report findings @ -No old charts were reviewed Differential Diagnosis (chest pain, altered mental status, abdominal pain women, abdominal pain men, vaginal bleeding, weakness, fever, dyspnea, syncope, headache, dizziness, GI bleed, back pain, seizure, CVA, palpatations, mental health, musculoskeletal)? @ -Eczema, pityriasis versicolor. EKG interpreted by me (3pts min.). @ -Not done X-rays interpreted by me (1pt min.). @ -None done CT interpreted by me (1pt min.). @ -None done U/S interpreted by me (1pt. min.). @ -None done What testing was considered but not performed or refused? (CT, X-rays, U/S, labs)? Why? @ -None What meds were considered but not given or refused? Why? @ -None Did you discuss the management of the patient with other professionals (professionals i.e. ADIN Ingram, SHIPBUILDING DRAFTSPERSON, lab, RT, psych nurse, social media content specialist, animal ride attendant, teacher, tactical intelligence officer, behavioral health case manager)? Give summary @ -No Was smoking cessation discussed for >3mins.? @ -No Was critical care preformed (if so, how long)? @ -No Were there social determinants of health that impacted care today? How? (Homelessness, low income, unemployed, alcoholism, drug addiction, transportation, low edu. Level, literacy, decrease access to med. care, usp, rehab)? @ -No Was there de-escalation of care discussed even if they declined (Discuss DNR or withdrawal of care, Hospice)? DNR status @ -No What co-morbidities impacted this encounter? (DM, HTN, Smoking, COPD, CAD, Cancer, CVA, ARF, Chemo, Hep., AIDS, mental health diagnosis, sleep apnea, morbid obesity)? @ -None Was patient admitted / discharged? Hospital course, mention meds given and route, prescriptions, significant lab abnormalities, going to OR and other pertinent info. @ -Discharge home Undiagnosed new problem with uncertain prognosis? @ -No Drug Therapy requiring intensive monitoring for toxicity (Heparin, Nitro, Insulin, Cardizem)? @ -No Were any procedures done? @ -No Diagnosis/symptom? @ -Rash, probable eczema Acute, or Chronic, or Acute on Chronic? @ -Acute Uncomplicated (without systemic symptoms) or Complicated (systemic symptoms)? @ -Uncomplicated Side effects of treatment? @ -No Exacerbation, Progression, or Severe Exacerbation? @ -No Poses a threat to life or bodily function? How? (Chest pain, USA, OR, pneumonia, PE, COPD, DKA, ARF, appy, cholecystitis, CVA, Diverticulitis, Homicidal, Suicidal, threat to staff... and all critical care pts) @ -No Disposition Clinical Impression: Rash, Eczema Disposition: HOME SELF-CARE Condition: Good Instructions (If sedation given, give patient instructions): Eczema (ED) Prescriptions: hydrOXYzine HCL [Atarax] 25 - 50 mg PO QID PRN #30 tab PRN Reason: Itching predniSONE [Deltasone] 20 mg PO BID #10 tab Triamcinolone 0.1% Cream [Kenalog 0.1% Cream] 1 applic TOPICAL BID #60 gm Is patient prescribed a controlled substance at d/c from ED?: No Referrals: None,Stated [Primary Care Provider] - 1-2 days Time of Disposition: 19:41
== END 2023-11-12 19:57 | disposition home or self-care (01) ==
LOC: EC 17:20
DX: L30.9 Dermatitis, unspecified (principal)
CPT/HCPCS: 99282

== ENCOUNTER 2023-11-17 13:11 | Emergency (ER) | payer OTHER ==
[2023-11-17 13:48] VITALS: RESP 18
[2023-11-17 14:06] LABS: Basophils % (A) 1 %; Eosinophils # (A) 0.1 k/uL (0-0.7); Eosinophils % (A) 1 %; HCT 39.1 % (34.0-46.0); Lymphocytes # (A) 3.5 k/uL (1.0-4.8); Lymphocytes % (A) 42 %; MCH 28.2 pg (25.0-35.0); MCHC 33.3 g/dL (31.0-37.0); MCV 84.5 fL (80.0-100.0); Monocytes # (A) 0.5 k/uL (0-1.0); Monocytes % (A) 5 %; Neutrophils # (A) 4.2 k/uL (1.3-7.7); Neutrophils % (A) 49 %; Platelet Count 208 k/uL (150-450); RBC 4.63 m/uL (3.80-5.40); WBC 8.5 k/uL (3.8-10.6)
[2023-11-17 14:18] LABS: ALT 17 U/L (4-34); AST 27 U/L (14-36); African American GFR (CKD) >90 (>60 ml/min/1.73 sqM); Albumin 4.3 g/dL (3.5-5.0); Alkaline Phosphatase 80 U/L (38-126); Anion Gap 10 mmol/L; Blood Urea Nitrogen 18 mg/dL (7-17); Calcium 9.1 mg/dL (8.4-10.2); Carbon Dioxide 22 mmol/L (22-30); Chloride 108 mmol/L (98-107); Glucose 85 mg/dL (74-99); Non-African American GFR(CKD) >90 (>60 ml/min/1.73 sqM); Sodium 140 mmol/L (137-145); Total Bilirubin 0.6 mg/dL (0.2-1.3); Total Protein 7.4 g/dL (6.3-8.2)
[2023-11-17] MEDS ORDERED: SODIUM CHLORIDE 0.9% 1,000 ML IV STA (14:30)
[2023-11-17] MEDS ORDERED: KETOROLAC 15 MG/ML 1 ML VIAL IVP STA ×2 (14:30→17:16)
[2023-11-17] MEDS ORDERED: ONDANSETRON 4 MG/2 ML VIAL IVP STA (14:30)
[2023-11-17 14:35] LABS: Appearance,Urine Cloudy (Clear); Bilirubin,Urine Negative (Negative); Blood,Urine Negative (Negative); Color,Urine Yellow; Glucose,Urine (UA) Negative (Negative); Hyaline Casts,Urine 1 /lpf (0-2); Ketones,Urine Negative (Negative); Leukocyte Esterase,Urine Negative (Negative); Mucus,Urine Many /hpf; Nitrite,Urine Negative (Negative); Protein,Urine Negative (Negative); RBC,Urine 1 /hpf (0-5); Specific Gravity,Urine 1.022 (1.001-1.035); Squamous Epithelial Cell,Urine 11 /hpf (0-4); Urobilinogen,Urine <2.0 mg/dL (<2.0); WBC,Urine 4 /hpf (0-5)
--- NOTE | 2023-11-17 14:57 | ED ---
Abdominal Pain HPI - General Chief Complaint: Abdominal Pain Stated Complaint: Abd pain Time Seen by Provider: 11/17/23 14:15 Source: patient, RN notes reviewed Mode of arrival: ambulatory Limitations: no limitations - History of Present Illness Initial Comments: This is a 22-year-old female who presents to the emergency department for abdominal pain. States that this started yesterday. It is primarily in the mid to lower abdomen. Reports associated nausea. She noticed that her stools are darker brown than usual this morning, but otherwise denies any problems with regards to bowel movements. Denies any urinary symptoms. Denies any history of similar pains in the past. She has not had any fevers or chills. She did just have a baby 2 months ago, and wonders if may be related to that. MD Complaint: abdominal pain - Related Data Previous Rx's Medication Instructions Recorded Ketorolac [Toradol] 10 mg PO Q6HR PRN #15 tab 11/17/23 Ondansetron Odt [Zofran Odt] 4 mg PO Q8HR PRN #15 tab 11/17/23 Allergies Allergy/AdvReac Type Severity Reaction Status Date / Time No Known Allergies Allergy Verified 11/17/23 16:05 Review of Systems ROS Statement: Those systems with pertinent positive or pertinent negative responses have been documented in the HPI. ROS Other: All systems not noted in ROS Statement are negative. Past Medical History Past Medical History: No Reported History Additional Past Medical History / Comment(s): Previous term vaginal delivery 7 lbs. 6 oz. History of Any Multi-Drug Resistant Organisms: None Reported Past Surgical History: Ear Surgery Past Anesthesia/Blood Transfusion Reactions: No Reported Reaction Past Psychological History: No Psychological Hx Reported Smoking Status: Never smoker Past Alcohol Use History: Occasional Past Drug Use History: Marijuana General Exam Limitations: no limitations General appearance: alert, in no apparent distress Head exam: Present: atraumatic, normocephalic, normal inspection Respiratory exam: Present: normal lung sounds bilaterally. Absent: respiratory distress, wheezes, rales, rhonchi, stridor Cardiovascular Exam: Present: regular rate, normal rhythm, normal heart sounds. Absent: systolic murmur, diastolic murmur, rubs, gallop, clicks GI/Abdominal exam: Present: soft, tenderness (Lower abdomen and RLQ), normal bowel sounds. Absent: distended Neurological exam: Present: alert, oriented X3, CN II-XII intact Psychiatric exam: Present: normal affect, normal mood Skin exam: Present: warm, dry, intact, normal color. Absent: rash Course Vital Signs 11/17/23 11/17/23 13:23 17:57 Temperature 98.0 F 98.7 F Pulse Rate 78 67 Respiratory 18 18 Rate Blood Pressure 119/68 121/78 O2 Sat by Pulse 97 97 Oximetry Medical Decision Making - Medical Decision Making This is a 22-year-old female who presents to the emergency department for abdominal pain. Was pt. sent in by a medical professional or institution? @ -No Did you speak to anyone other than the patient for history? @ -No Did you review nursing and triage notes? @ -I disagree with the aspect of the pain beginning this morning. Patient states that it began yesterday. Were old charts reviewed? @ -No Differential Diagnosis? @ -Differential Abdominal Pain Women: Appendicitis, Cholecystitis, diverticulosis, ischemic bowel, pancreatitis, hepatitis, UTI, gastroenteritis, AAA, incarcerated hernia, bowel obstruction, constipation, inflammatory bowel, hepatitis, peptic ulcer disease, splenic infarction, perforated viscus, vulvitis, ovarian torsion, PID, kidney stone, placenta abruption, this is not meant to be an all-inclusive list EKG interpreted by me (3pts min.)? @ -Not obtained X-rays interpreted by me (1pt min.)? @ -Not obtained CT interpreted by me (1pt min.)? @ -CT scan of the abdomen and pelvis obtained. My interpretation identifies no evidence of ureteral calculus. U/S interpreted by me (1pt. min.)? @ -Transvaginal ultrasound obtained. My interpretation identifies no evidence of an ovarian torsion. What testing was considered but not performed? (CT, X-rays, U/S, labs)? Why? @ -None What meds were considered but not given? Why? @ -None Did you discuss the management of the patient with other professionals? @ -No Did you reconcile home meds? @ -No Was smoking cessation discussed for >3mins.? @ -No Was critical care preformed (if so, how long)? @ -No Were there social determinants of health that impacted care today? How? (Homelessness, low income, unemployed, alcoholism, drug addiction, transportation, low edu. Level, literacy, decrease access to med. care, fdc, rehab)? @ -No Was there de-escalation of care discussed even if they declined? (Discuss DNR or withdrawal of care, Hospice)? @ -No What co-morbidities impacted this encounter? (DM, HTN, Smoking, COPD, CAD, Cancer, CVA, Hep., AIDS, mental health diagnosis, sleep apnea, morbid obesity)? @ -None Was patient admitted / discharged? @ Discharged. Lab work obtained and found to be unremarkable. Computed tomogr aphy scan of the abdomen and pelvis obtained revealing pelvic fluid that may be physiologic or related to a recently ruptured follicle or even PID. There is also mild circumferential wall thickening of the rectum that may be rate related to proctitis or adjacent reactive inflammation. Inflammatory markers were negative, urinalysis was negative, and patient denies any concerns for STD exposure that would be expected with PID. We did however proceed with a transvaginal ultrasound for further evaluation. This revealed follicular changes in the ovaries with no evidence of torsion. The fluid was said to be likely physiologic. There was no clear cause of the patient's symptoms identified. Her symptoms were well controlled with IV fluids, Toradol, and Zofran, and she felt stable for discharge home. Prescription for Toradol and Zofran provided with dosing instructions reviewed. Otherwise advised follow-up with her primary care provider. Undiagnosed new problem with uncertain prognosis? @ -None Drug Therapy requiring intensive monitoring for toxicity (Heparin, Nitro, Insulin, Cardizem)? @ -None Were any procedures done? @ -None Diagnosis/symptom? @ -Abdominal pain, nausea/vomiting Acute, or Chronic, or Acute on Chronic? @ -Acute Uncomplicated (without systemic symptoms) or Complicated (systemic symptoms)? @ -Uncomplicated Side effects of treatment? @ -None Exacerbation, Progression, or Severe Exacerbation] @ -Not applicable Poses a threat to life or bodily function? @ -No Return precautions reviewed in depth, the patient is instructed to return to the emergency department with any new, worsening, or concerning symptoms. Patient verbalized understanding. This case was discussed in detail with the attending ED physician, Dr. Bowers. Presentation, findings, and treatment plan discussed in detail as well. - Lab Data Result diagrams: 11/17/23 13:47 11/17/23 13:47 Lab Results 11/17/23 11/17/23 11/17/23 Range/Units 13:47 13:47 13:47 WBC 8.5 (3.8-10.6) k/uL RBC 4.63 (3.80-5.40) m/uL Hgb 13.0 (11.4-16.0) gm/dL Hct 39.1 (34.0-46.0) % MCV 84.5 (80.0-100.0) fL MCH 28.2 (25.0-35.0) pg MCHC 33.3 (31.0-37.0) g/dL RDW 14.0 (11.5-15.5) % Plt Count 208 (150-450) k/uL MPV 9.0 Neutrophils % 49 % Lymphocytes % 42 % Monocytes % 5 % Eosinophils % 1 % Basophils % 1 % Neutrophils # 4.2 (1.3-7.7) k/uL Lymphocytes # 3.5 (1.0-4.8) k/uL Monocytes # 0.5 (0-1.0) k/uL Eosinophils # 0.1 (0-0.7) k/uL Basophils # 0.0 (0-0.2) k/uL Sodium (137-145) mmol/L Potassium (3.5-5.1) mmol/L Chloride (98-107) mmol/L Carbon Dioxide (22-30) mmol/L Anion Gap mmol/L BUN (7-17) mg/dL Creatinine (0.52-1.04) mg/dL Est GFR (CKD-EPI)AfAm (>60 ml/min/1.73 sqM) Est GFR (CKD-EPI)NonAf (>60 ml/min/1.73 sqM) Glucose (74-99) mg/dL Calcium (8.4-10.2) mg/dL Total Bilirubin (0.2-1.3) mg/dL AST (14-36) U/L ALT (4-34) U/L Alkaline Phosphatase (38-126) U/L C-Reactive Protein (<1.0) mg/dL Total Protein (6.3-8.2) g/dL Albumin (3.5-5.0) g/dL Urine Color Yellow Urine Appearance Cloudy H (Clear) Urine pH 6.0 (5.0-8.0) Ur Specific [place] 1.022 (1.001-1.035) Urine Protein Negative (Negative) Urine Glucose (UA) Negative (Negative) Urine Ketones Negative (Negative) Urine Blood Negative (Negative) Urine Nitrite Negative (Negative) Urine Bilirubin Negative (Negative) Urine Urobilinogen <2.0 (<2.0) mg/dL Ur Leukocyte Esterase Negative (Negative) Urine RBC 1 (0-5) /hpf Urine WBC 4 (0-5) /hpf Ur Squamous Epith Cells 11 H (0-4) /hpf Hyaline Casts 1 (0-2) /lpf Urine Mucus Many H (None) /hpf Urine HCG, Qual Not Detected (Not Detectd) 11/17/23 11/17/23 Range/Units 13:47 13:47 WBC (3.8-10.6) k/uL RBC (3.80-5.40) m/uL Hgb (11.4-16.0) gm/dL Hct (34.0-46.0) % MCV (80.0-100.0) fL MCH (25.0-35.0) pg MCHC (31.0-37.0) g/dL RDW (11.5-15.5) % Plt Count (150-450) k/uL MPV Neutrophils % % Lymphocytes % % Monocytes % % Eosinophils % % Basophils % % Neutrophils # (1.3-7.7) k/uL Lymphocytes # (1.0-4.8) k/uL Monocytes # (0-1.0) k/uL Eosinophils # (0-0.7) k/uL Basophils # (0-0.2) k/uL Sodium 140 (137-145) mmol/L Potassium 4.2 (3.5-5.1) mmol/L Chloride 108 H (98-107) mmol/L Carbon Dioxide 22 (22-30) mmol/L Anion Gap 10 mmol/L BUN 18 H (7-17) mg/dL Creatinine 0.68 (0.52-1.04) mg/dL Est GFR (CKD-EPI)AfAm >90 (>60 ml/min/1.73 sqM) Est GFR (CKD-EPI)NonAf >90 (>60 ml/min/1.73 sqM) Glucose 85 (74-99) mg/dL Calcium 9.1 (8.4-10.2) mg/dL Total Bilirubin 0.6 (0.2-1.3) mg/dL AST 27 (14-36) U/L ALT 17 (4-34) U/L Alkaline Phosphatase 80 (38-126) U/L C-Reactive Protein <0.5 (<1.0) mg/dL Total Protein 7.4 (6.3-8.2) g/dL Albumin 4.3 (3.5-5.0) g/dL Urine Color Urine Appearance (Clear) Urine pH (5.0-8.0) Ur Specific [place] (1.001-1.035) Urine Protein (Negative) Urine Glucose (UA) (Negative) Urine Ketones (Negative) Urine Blood (Negative) Urine Nitrite (Negative) Urine Bilirubin (Negative) Urine Urobilinogen (<2.0) mg/dL Ur Leukocyte Esterase (Negative) Urine RBC (0-5) /hpf Urine WBC (0-5) /hpf Ur Squamous Epith Cells (0-4) /hpf Hyaline Casts (0-2) /lpf Urine Mucus (None) /hpf Urine HCG, Qual (Not Detectd) - Radiology Data Radiology results: report reviewed, image reviewed Disposition Clinical Impression: Abdominal pain Disposition: HOME SELF-CARE Instructions (If sedation given, give patient instructions): Abdominal Pain (ED) Additional Instructions: Return to the emergency department with any new, worsening, or concerning symptoms. Take the Toradol with Tylenol as needed for pain relief. If you choose to take the Toradol, do not take any other anti-inflammatories such as ibuprofen, take one or the other. You can take the Zofran up to every 8 hours as needed for nausea and vomiting. Slowly advance your diet as tolerated and remain well-hydrated. Follow up with your primary care provider in 1-2 days. Prescriptions: Ketorolac [Toradol] 10 mg PO Q6HR PRN #15 tab PRN Reason: Pain Ondansetron Odt [Zofran Odt] 4 mg PO Q8HR PRN #15 tab PRN Reason: Nausea And Vomiting Is patient prescribed a controlled substance at d/c from ED?: No Referrals: None,Stated [Primary Care Provider] - 1-2 days
[2023-11-17 15:05] LABS: Potassium 4.2 mmol/L (3.5-5.1)
--- NOTE | 2023-11-17 15:40 | CT ---
EXAMINATION TYPE: CT abdomen pelvis w con DATE OF EXAM: 11/17/2023 COMPARISON: NONE HISTORY: 22-year-old female lower abd pain, dark stools and nausea starting this morning TECHNIQUE: Contiguous axial scanning of the abdomen and pelvis following administration of 100 ml Iso lewis 300 IV contrast. Delayed images through the kidneys and coronal/sagittal reconstructions perform ed. CT DLP: 560.2 mGycm Automated exposure control for dose reduction was used. FINDINGS: LUNG BASES: No significant abnormality is appreciated. LIVER/GB: Small amount of focal fat along the anterior falciform ligament. PANCREAS: No significant abnormality is seen. SPLEEN: No significant abnormality is seen. ADRENALS: No significant abnormality is seen. KIDNEYS: A couple nonobstructive renal calculi on both sides measuring up to 5 mm. Symmetric uptake a nd excretion of contrast from the kidneys. BOWEL: Nondilated small bowel. No significant stool burden. There may be mild circumferential wall th ickening at the rectum. LYMPH NODES: No significant abnormality is seen. OTHER: No significant abnormality is seen. PELVIS: Bladder nondistended. Uterus anteverted. There is moderate pelvic free fluid. Unable to clear ly delineate the right ovary due to the pelvic free fluid and crowded bowel. Left ovary is visualized . No pelvic lymphadenopathy seen. BONES: No significant abnormality is seen. IMPRESSION: 1. MODERATE PELVIC FREE FLUID MAY BE PHYSIOLOGIC. CONSIDER THE POSSIBILITY OF A RECENTLY RUPTURED FOL LICLE OR EVEN PID. 2. MILD CIRCUMFERENTIAL WALL THICKENING OF THE RECTUM COULD REPRESENT A PROCTITIS OR ADJACENT REACTIV E INFLAMMATION. 3. NONOBSTRUCTIVE BILATERAL RENAL CALCULI MEASURING UP TO 5 MM.
--- NOTE | 2023-11-17 16:43 | US ---
EXAMINATION TYPE: US transvaginal plus Dopplers DATE OF EXAM: 11/17/2023 COMPARISON: CT same day CLINICAL INDICATION: Female, 22 years old with history of Lower abdominal pain, abnormal CT; Pelvic p ain TECHNIQUE: Transvaginal ER exam. Color Doppler spectral waveform analysis of the ovarian arteries and veins. Date of LMP: 1 month ago EXAM MEASUREMENTS: Uterus: 8.6 x 4.4 x 5.3 cm Endometrial Stripe: 1.4 cm Right Ovary: 3.3 x 1.8 x 2.3 cm Left Ovary: 3.4 x 2.1 x 2.5 cm 1. Uterus: anteverted 2. Endometrium: Measures at the upper limits of normal. 3. Right Ovary: multiple follicles 4. Left Ovary: multiple follicles Spectral, color and waveform doppler imaging shows good arterial and venous flow within the ovaries ; there is no evidence for ovarian torsion. 5. Bilateral Adnexa: wnl. No abnormal tubal dilatation. 6. Posterior cul-de-sac: free fluid IMPRESSION: 1. Prominent follicular change in the ovaries. No sonographic evidence for ovarian torsion. 2. Endometrial stripe thickness at the upper limits of normal by 1.4 cm. This should correspond to th e late secretory phase of the menstrual cycle. 3. Moderate pelvic free fluid may be physiologic. No evidence for adnexal abscess or hydrosalpinx.
[2023-11-17] MEDS ORDERED: ONDANSETRON 4 MG ODT STARTER PACK 2 TAB BTL PO STA (17:16)
[2023-11-17] MEDS ORDERED: traMADol 50 MG STARTER PACK 3 TAB BTL PO STA (17:16)
[2023-11-17 18:17] VITALS: BP 121/78; PULSE 67; TEMP 98.7
== END 2023-11-17 18:05 | disposition home or self-care (01) ==
LOC: EC 13:11
DX: K62.89 Other specified diseases of anus and rectum (principal); F12.90 Cannabis use, unspecified, uncomplicated
CPT/HCPCS: 36415; 80053; 85025; 86140; 81001; 81025; 93975; 76830; 74177; 99284; 96374; 96375; 96376; 96361 ×3; J2405; J1885; S0119; Q9967

== ENCOUNTER 2023-12-27 18:50 | Emergency (ER) | payer OTHER ==
--- NOTE | 2023-12-27 19:33 | ED ---
General Adult HPI - General Chief complaint: Skin/Abscess/Foreign Body Stated complaint: Rash Time Seen by Provider: 12/27/23 19:16 Source: patient Mode of arrival: ambulatory Limitations: no limitations - History of Present Illness Initial comments: 23-year-old female presenting with chief complaint of rash. This is a generalized rash. It has been ongoing for over a month. It is pruritic in nature. It affects the face trunk and extremities. There are erythematous patches, somewhat resembling urticaria. No pustules or vesicles. Patient was seen here last month and treated with steroids and triamcinolone cream for possible eczema. She states that these medications did not help her. No difficulty breathing or swallowing. No new foods, medications, soaps, lotions, detergents, or other products. - Related Data Previous Rx's Medication Instructions Recorded Ketorolac [Toradol] 10 mg PO Q6HR PRN #15 tab 11/17/23 Ondansetron Odt [Zofran Odt] 4 mg PO Q8HR PRN #15 tab 11/17/23 Ketoconazole 400 mg PO ONCE #2 tablet 12/27/23 predniSONE 50 mg PO DAILY 5 Days #5 tab 12/27/23 Allergies Allergy/AdvReac Type Severity Reaction Status Date / Time No Known Allergies Allergy Verified 12/27/23 19:10 Review of Systems ROS Statement: Those systems with pertinent positive or pertinent negative responses have been documented in the HPI. ROS Other: All systems not noted in ROS Statement are negative. Past Medical History Past Medical History: No Reported History Additional Past Medical History / Comment(s): Previous term vaginal delivery 7 lbs. 6 oz. History of Any Multi-Drug Resistant Organisms: None Reported Past Surgical History: Ear Surgery Past Anesthesia/Blood Transfusion Reactions: No Reported Reaction Past Psychological History: No Psychological Hx Reported Smoking Status: Never smoker Past Alcohol Use History: Occasional Past Drug Use History: Marijuana General Exam Limitations: no limitations General appearance: alert, in no apparent distress Head exam: Present: atraumatic, normocephalic Eye exam: Present: normal appearance ENT exam: Present: normal oropharynx Neck exam: Present: normal inspection Respiratory exam: Present: normal lung sounds bilaterally. Absent: respiratory distress, wheezes, rales, rhonchi, stridor Cardiovascular Exam: Present: regular rate, normal rhythm, normal heart sounds. Absent: systolic murmur, diastolic murmur, rubs, gallop, clicks Neurological exam: Present: alert, oriented X3 Psychiatric exam: Present: normal affect, normal mood Skin exam: Present: erythema, urticaria Course Vital Signs 12/27/23 19:08 Temperature 98.9 F Pulse Rate 89 Respiratory 18 Rate Blood Pressure 112/68 O2 Sat by Pulse 98 Oximetry Medical Decision Making - Medical Decision Making Was pt. sent in by a medical professional or institution (ADIN Ingram, DESULFURIZER OPERATOR, urgent care, hospital, or usp...) When possible be specific @ -No Did you speak to anyone other than the patient for history (EMS, parent, family, police, friend...)? What history was obtained from this source @ -No Did you review nursing and triage notes (agree or disagree)? Why? @ -I reviewed and agree with nursing and triage notes Were old charts reviewed (outside hosp., previous admission, EMS record, old EKG, old radiological studies, urgent care reports/EKG's, usp records)? Report findings @ -No old charts were reviewed Differential Diagnosis (chest pain, altered mental status, abdominal pain women, abdominal pain men, vaginal bleeding, weakness, fever, dyspnea, syncope, headache, dizziness, GI bleed, back pain, seizure, CVA, palpatations, mental health, musculoskeletal)? @ -Differential includes allergic reaction, cellulitis, tinea versicolor, eczema, psoriasis, this is not an all-inclusive list EKG interpreted by me (3pts min.). @ -As above X-rays interpreted by me (1pt min.). @ -None done CT interpreted by me (1pt min.). @ -None done U/S interpreted by me (1pt. min.). @ -None done What testing was considered but not performed or refused? (CT, X-rays, U/S, labs)? Why? @ -None What meds were considered but not given or refused? Why? @ -None Did you discuss the management of the patient with other professionals (professionals i.e. ADIN Ingram, DESULFURIZER OPERATOR, lab, RT, psych nurse, child welfare social worker, manager zone, teacher, senior grants officer, case management coordinator)? Give summary @ -No Was smoking cessation discussed for >3mins.? @ -No Was critical care preformed (if so, how long)? @ -No Were there social determinants of health that impacted care today? How? (Homelessness, low income, unemployed, alcoholism, drug addiction, transportation, low edu. Level, literacy, decrease access to med. care, senior care, rehab)? @ -No Was there de-escalation of care discussed even if they declined (Discuss DNR or withdrawal of care, Hospice)? DNR status @ -No What co-morbidities impacted this encounter? (DM, HTN, Smoking, COPD, CAD, Cancer, CVA, ARF, Chemo, Hep., AIDS, mental health diagnosis, sleep apnea, morbid obesity)? @ -None Was patient admitted / discharged? Hospital course, mention meds given and route, prescriptions, significant lab abnormalities, going to OR and other pertinent info. @ -23-year-old female presenting with chief complaint of rash. She was seen here last month for the same complaint, she did not experience relief with prednisone and triamcinolone cream. On physical examination the patient seems to have widespread lesions affecting the face trunk and extremities. The lesions somewhat resemble tinea versicolor. She will be treated with prednisone and ketoconazole 400 mg once. She is provided with dermatology referral for follow-up. Discharged home. Follow-up with PCP. Report back to ER with any new or worsening symptoms. Discussed return parameters and answered all questions. Patient conveyed verbal understanding and agreed to the plan. I discussed this case in detail with my attending Dr. Gonzalez Undiagnosed new problem with uncertain prognosis? @ -No Drug Therapy requiring intensive monitoring for toxicity (Heparin, Nitro, Insulin, Cardizem)? @ -No Were any procedures done? @ -No Diagnosis/symptom? @ -Tinea versicolor Acute, or Chronic, or Acute on Chronic? @ -Acute Uncomplicated (without systemic symptoms) or Complicated (systemic symptoms)? @ -Uncomplicated Side effects of treatment? @ -No Exacerbation, Progression, or Severe Exacerbation? @ -No Poses a threat to life or bodily function? How? (Chest pain, [place], [place], pneumonia, PE, COPD, DKA, ARF, appy, cholecystitis, CVA, Diverticulitis, Homicidal, Suicidal, threat to staff... and all critical care pts) @ -No Disposition Clinical Impression: Tinea versicolor Disposition: HOME SELF-CARE Condition: Good Instructions (If sedation given, give patient instructions): Acute Rash (ED), Tinea Versicolor (ED) Additional Instructions: Follow-up with dermatology. Report back to ER with any new or worsening symptoms. Take medication as prescribed. Prescriptions: Ketoconazole 400 mg PO ONCE #2 tablet predniSONE 50 mg PO DAILY 5 Days #5 tab Is patient prescribed a controlled substance at d/c from ED?: No Referrals: None,Stated [Primary Care Provider] - 1-2 days Syed Geiger MD [STAFF PHYSICIAN] - 1-2 days Time of Disposition: 19:33
[2023-12-27] MEDS: DEXAMETHASONE SOD PHOSPHATE 10 MG/ML 1 ML VIAL IM STA (19:42)
[2023-12-27] MEDS: FAMOTIDINE 20 MG TAB PO STA (19:42)
[2023-12-27 19:55] VITALS: BP 112/68; PULSE 89; RESP 18; TEMP 98.9
== END 2023-12-27 19:49 | disposition home or self-care (01) ==
LOC: EC 18:50
DX: B36.0 Pityriasis versicolor (principal); F12.90 Cannabis use, unspecified, uncomplicated
CPT/HCPCS: 99282; 96372; J1100

== ENCOUNTER 2024-08-29 06:15 | Inpatient (IN) | payer OTHER ==
[2024-08-29] MEDS ORDERED: LIDOCAINE 0.5% (PF) 5 MG/ML (50 ML SDV) SQ PRN (06:36)
[2024-08-29] MEDS ORDERED: TRANEXAMIC 1,000 MG/100ML-NACL 1,000 MG in EMPTY BAG 1 BAG IV PRN (06:36)
[2024-08-29] MEDS ORDERED: miSOPROStoL 200 MCG TAB RECTAL PRN (06:36)
[2024-08-29] MEDS ORDERED: OXYTOCIN 10 UNIT/ML 1 ML VIAL IM PRN (06:36)
[2024-08-29] MEDS ORDERED: TERBUTALINE 1 MG/ML VIAL SQ PRN (06:36)
[2024-08-29] MEDS ORDERED: CARBOPROST TROMETHAMINE 250 MCG/ML 1 ML AMP IM PRN (06:36)
[2024-08-29] MEDS ORDERED: METHYLERGONOVINE 0.2 MG/ML 1 ML AMP IM PRN (06:36)
[2024-08-29] MEDS ORDERED: miSOPROStoL 200 MCG TAB PO PRN (06:36)
[2024-08-29] MEDS: LACTATED RINGERS 1,000 ML IV SCH (06:58)
[2024-08-29] MEDS: OXYTOCIN 30 UNITS/500 ML NS 30 UNIT in SALINE 1 500ML.BAG IV SCH (06:58)
[2024-08-29 07:16] LABS: Basophils % (A) 0 %; Eosinophils # (A) 0.1 k/uL (0-0.7); Eosinophils % (A) 1 %; HCT 31.5 % (34.0-46.0); HGB 10.1 gm/dL (11.4-16.0); Lymphocytes # (A) 1.5 k/uL (1.0-4.8); Lymphocytes % (A) 28 %; MCH 26.3 pg (25.0-35.0); MCHC 32.2 g/dL (31.0-37.0); MCV 81.8 fL (80.0-100.0); Mean Platelet Volume 9.6; Monocytes # (A) 0.4 k/uL (0-1.0); Monocytes % (A) 7 %; Neutrophils # (A) 3.3 k/uL (1.3-7.7); Neutrophils % (A) 61 %; Platelet Count 122 k/uL (150-450); RBC 3.85 m/uL (3.80-5.40); RDW 14.1 % (11.5-15.5); WBC 5.4 k/uL (3.8-10.6)
[2024-08-29] MEDS ORDERED: NALBUPHINE 10 MG/ML (10 ML MDV) IV PRN (07:37)
--- NOTE | 2024-08-29 07:41 | P.HPOB ---
History of Present Illness H&P Date: 08/29/24 Chief Complaint: 39-0/7 weeks, elective induction The patient is a 23-year-old 4 para 2-0-1-2 admitted at 39-0/7 weeks as established by last menstrual period and confirmed by 8-week ultrasound. She is admitted for elective induction of labor with all signs reassuring, category 1 heart rate tracing. Her has been entirely uncomplicated and group B strep status is negative. Obstetrical history: 4 para 2-0-1-2 with 2 term vaginal deliveries and 1 early loss. Current statistics are listed in history of present illness. EDC of 1124 was established by last menstrual period. Laboratory workup demonstrates a blood type O+ with a negative antibody screen. Rubella status is immune. The remainder of the laboratory workup was within normal limits. trisomy testing was negative. 1 hour Glucola was normal and group B strep status is negative. Gynecologic history: Unremarkable with no history of any infections to include STDs. Review of Systems Review of systems is confined to history of present illness. Past Medical History Past Medical History: No Reported History Additional Past Medical History / Comment(s): Previous term vaginal delivery 7 lbs. 6 oz. History of Any Multi-Drug Resistant Organisms: None Reported Past Surgical History: Ear Surgery Past Anesthesia/Blood Transfusion Reactions: No Reported Reaction Past Psychological History: No Psychological Hx Reported Smoking Status: Never smoker Past Drug Use History: None Reported Medications and Allergies Home Medications Medication Instructions Recorded Confirmed Type No Known Home Medications 08/29/24 08/29/24 History Allergies Allergy/AdvReac Type Severity Reaction Status Date / Time No Known Allergies Allergy Verified 08/29/24 06:35 Exam Vital Signs Temp Pulse Resp BP 08/29/24 06:35 97.6 F 90 16 117/76 Intake and Output 08/28/24 08/29/24 08/29/24 22:59 06:59 14:59 Other: Weight 63.049 kg In general, this is a well-developed, well-nourished white female in no acute distress. Her heart has a regular rhythm and rate without murmur. Her lungs are clear to auscultation bilaterally in all guillen. Her abdomen is gravid, nondistended, has normal active bowel sounds, soft, nontender, and without any palpable masses aside from the uterine fundus. Her extremities are without any cyanosis, clubbing, or edema and are nontender to palpation bilaterally. Digital cervical examination demonstrates her cervix to be 4 cm dilated, 70% effaced, with the vertex in presentation at -2 station. Artificial rupture of membranes is carried out demonstrating very lightly meconium stained fluid. Results Result Diagrams: 08/29/24 06:53 Abnormal Lab Results - Last 24 Hours (Table) 08/29/24 Range/Units 06:53 Hgb 10.1 L (11.4-16.0) gm/dL Hct 31.5 L (34.0-46.0) % Plt Count 122 L (150-450) k/uL Assessment and Plan (1) 39 weeks gestation of Current Visit: Yes Status: Acute Code(s): Z3A.39 - 39 WEEKS GESTATION OF SNOMED Code(s): 67068823 (2) Elective induction of labor planned Current Visit: Yes Status: Acute Code(s): DIV7630 - SNOMED Code(s): 846923651 Plan: Patient has been admitted for elective induction of labor. Pitocin has been started and she has undergone artificial rupture of membranes. She will have close maternal and surveillance and expectant management will be practiced. She is a good candidate for either IV or epidural analgesia if she so chooses.
[2024-08-29] MEDS ORDERED: diphenhydrAMINE 50 MG/ML 1 ML VIAL IVP PRN ×2 (11:52)
[2024-08-29] MEDS ORDERED: IBUPROFEN 800 MG TAB PO PRN (11:52)
[2024-08-29] MEDS ORDERED: ACETAMINOPHEN TAB 500 MG TAB PO PRN (11:52)
[2024-08-29] MEDS ORDERED: diphenhydrAMINE 50 MG CAP PO PRN (11:52)
[2024-08-29] MEDS ORDERED: SIMETHICONE 80 MG CHEWABLE PO PRN (11:52)
[2024-08-29] MEDS ORDERED: ZOLPIDEM 5 MG TAB PO PRN (11:52)
[2024-08-29] MEDS ORDERED: diphenhydrAMINE 25 MG CAP PO PRN (11:52)
[2024-08-29] MEDS ORDERED: LANOLIN CREAM 1 GM TUBE TOPICAL PRN (11:52)
[2024-08-29] MEDS ORDERED: HYDROCORTISONE 2.5% RECTAL CREAM 30 GM TUBE RECTAL PRN (11:52)
[2024-08-29] MEDS ORDERED: BENZOCAINE/MENTHOL SPRAY 1 GM/SPRAY AEROSOL TOPICAL PRN (11:52)
--- NOTE | 2024-08-29 11:56 | P.PROBDLV ---
Vaginal Delivery Note - . Vaginal Delivery Note: The patient is a 23-year-old 4 para 2-0-1-2 admitted at 39-2/7 weeks by good dating parameters. She is admitted for elective induction of labor with all signs reassuring, category 1 heart rate tracing. Her has been entirely uncomplicated and group B strep status is negative. On labor and delivery, she had Pitocin started followed by artificial rupture of membranes for clear to lightly meconium stained fluid. She made fairly rapid progress through the active phase of labor and ultimately progressed to anterior lip which she was able to push past with 1 push. She then pushed over the course of the next 1-2 contractions to a normal spontaneous vaginal delivery of a viable 7 pound 0 ounce baby girl with Apgars of 9 at 1 minute and 9 at 5 minutes delivered in the right occiput anterior position. The placenta was delivered spontaneously, intact, and grossly normal with a grossly normal three-vessel cord inserted approximately 5 to 6 cm from the margin of the placental disc. There were no lacerations of the perineum, vagina, or cervix. Estimated blood loss for the case was approximately 100 mL. There were no complications. All sponge, instrument, and needle counts were correct. Both mother and are resting comfortably in recovery.
[2024-08-29] MEDS ORDERED: OXYTOCIN 30 UNITS/500 ML NS 30 UNIT in SALINE 1 500ML.BAG IV SCH (12:00)
[2024-08-29] MEDS: SENNOSIDES-DOCUSATE SODIUM 1 EACH TAB PO SCH (21:45)
[2024-08-30 02:26] LABS: Basophils % (A) 0 %; Eosinophils # (A) 0.1 k/uL (0-0.7); Eosinophils % (A) 1 %; HGB 9.5 gm/dL (11.4-16.0); Lymphocytes # (A) 2.1 k/uL (1.0-4.8); Lymphocytes % (A) 21 %; MCH 26.4 pg (25.0-35.0); MCHC 32.7 g/dL (31.0-37.0); MCV 80.5 fL (80.0-100.0); Mean Platelet Volume 10.5; Monocytes # (A) 0.4 k/uL (0-1.0); Monocytes % (A) 5 %; Neutrophils % (A) 71 %; Platelet Count 141 k/uL (150-450); RDW 14.3 % (11.5-15.5); WBC 9.7 k/uL (3.8-10.6)
[2024-08-30 08:13] VITALS: BP 131/91; PULSE 108; RESP 16; TEMP 98.2
--- NOTE | 2024-08-30 08:43 | P.DS ---
Providers Date of admission: 08/29/24 06:23 Expected date of discharge: 08/30/24 Attending physician: Aaron Morales Primary care physician: Stated None - Discharge Diagnosis(es) (1) 39 weeks gestation of Current Visit: Yes Status: Acute (2) Elective induction of labor planned Current Visit: Yes Status: Acute (3) Normal spontaneous vaginal delivery Current Visit: Yes Status: Acute Hospital Course: The patient is a 23-year-old 4 para 2-0-1-2 admitted at 39-2/7 weeks by good dating parameters. She is admitted for elective induction with all signs reassuring, category 1 heart rate tracing. Her was uncomplicated and group B strep status is negative. On labor delivery, she had Pitocin started and underwent artificial rupture of membranes for clear to lightly meconium stained fluid. She made rapid progress through the active phase of labor to complete and then pushed over the course of approximately 2 contractions to a normal spontaneous vaginal delivery of a viable 7 pound 0 ounce baby girl with Apgars of 9 at 1 minute and 9 at 5 minutes. Her course was unremarkable with vital signs remaining stable and her temperature was afebrile throughout. She was deemed stable for discharge on day #1 and was discharged home to follow-up in the office in 6 weeks time routinely. Discharge instructions included calling for any significantly increased blee ding or foul-smelling lochia, significantly increased fever or abdominal pain, perineal complaints, breast complaints, or anything else that concerned her. She was additionally instructed to have nothing in the vagina for at least 6 weeks time to include intercourse. She understood her instructions and agrees to follow-up as noted above. Discharge medications included [id number] analgesic pain medications. Maternal blood type is O+ and rubella status is immune. Procedures: #1. Pitocin induction #2. Artificial rupture of membranes #3. Normal spontaneous vaginal delivery Patient Condition at Discharge: Stable Plan - Discharge Summary New Discharge Prescriptions: No Action No Known Home Medications Discharge Medication List No Known Home Medications 08/29/24 [History] Follow up Appointment(s)/Referral(s): Aaron Morales MD [STAFF PHYSICIAN] - 10/10/24 1:45 pm Discharge Disposition: HOME SELF-CARE
== END 2024-08-30 14:22 | disposition home or self-care (01) | DRG 560 ==
LOC: 4FBP 06:23
PROVIDERS: ADMIT Obstetrics & Gynecology; ATTEND Obstetrics & Gynecology
PROC: 10E0XZZ Delivery of Products of Conception, External Approach (ICD-10-PCS; principal; 2024-08-29)
PROC: 10907ZC Drainage of Amniotic Fluid, Therapeutic from Products of Conception, Via Natural or Artificial Opening (ICD-10-PCS; 2024-08-29)
PROC: 3E033VJ Introduction of Other Hormone into Peripheral Vein, Percutaneous Approach (ICD-10-PCS; 2024-08-29)
DX: O77.0 Labor and delivery complicated by meconium in amniotic fluid (principal); Z37.0 Single live birth; Z3A.39 39 weeks gestation of pregnancy
CPT/HCPCS: 85025; 86850; 86900; 86901